=== PATIENT | female | born 1955 | race Caucasian/White ===

== ENCOUNTER 2017-10-04 08:36 | Outpatient (CLI) | payer OTHER | END 2017-10-04 08:37 | disposition home or self-care (01) | LOC: BICMAMMO 08:36 | PROVIDERS: ATTEND Family Medicine | DX: Z12.31 Encounter for screening mammogram for malignant neoplasm of breast (principal); R92.1 Mammographic calcification found on diagnostic imaging of breast; Z80.3 Family history of malignant neoplasm of breast | CPT/HCPCS: 77067 ==

== ENCOUNTER 2020-02-08 18:19 | Inpatient (IN) | payer MEDICARE, OTHER ==
[2020-02-08] MEDS ORDERED: Ondansetron ODT 4 MG TAB PO PRN (19:26)
[2020-02-08] MEDS ORDERED: Guaifenesin DM 100-10/5 ML UDCUP PO PRN (19:26)
[2020-02-08] MEDS ORDERED: Ondansetron PF 4 MG/2 ML Vial IVP PRN (19:26)
[2020-02-08] MEDS ORDERED: Acetaminophen 325 MG TAB PO PRN (19:26)
[2020-02-08] MEDS ORDERED: Acetaminophen 650 MG Suppository PR PRN (19:26)
[2020-02-08] MEDS ORDERED: HYDROcodone/Acetaminophen 5/325 mg Tablet PO PRN ×2 (19:26)
[2020-02-08] MEDS ORDERED: Calcium Carbonate 500 MG ChewTAB PO PRN (19:26)
[2020-02-08] MEDS ORDERED: Sodium Chloride 0.9% 1,000 ML IV SCH (19:30)
--- NOTE | 2020-02-08 19:37 | PDOC.HHP ---
Hospitalist HPI - History of Present Illness n/v diarrhea fever cough History of Present Illness: Case of an 64y/o female with pmhx of htn, hypercholesterolemia and hld who comes transfered from [facility] due to abdominal pain diarrhea nausea and vomiting. patient refers she was on her usual states of health until 3weeks ago when symptoms started. she refers she went to pcp who send a covid test at the moment but was negative, none the less doctor started her on vit c, vit d and zinc. patient refers her symptoms continued to worsen and where complicated with fever chills cough and anorexia. today patient fell very week for which she decided to come to hospital for evaluation. she was found mild hypotension with b/p in the low 100s and saturating in the 90s at for which she was transfered to this institution for further evaluation and management. patient refers grandson was positive for covid on 01/26 Hospitalist ROS - Review of Systems All other systems reviewed; all pertinent +/- noted in HPI/Subj Hospitalist History - Past Surgical History Past Surgical History: reports: Hysterectomy - Social History Smoking Status: Former smoker Alcohol: reports: Occassional Drugs: reports: none Living Situation: With Family - Exam General Appearance: ill appearing Eye: PERRL, anicteric sclera ENT: normocephalic atraumatic, no oropharyngeal lesions Neck: supple, symmetric, no JVD Heart: RRR, no murmur, no gallops Respiratory: no rales, rhonchi, wheezes Gastrointestinal: soft, non-tender, non-distended Extremities: no cyanosis, no clubbing Skin: normal turgor, no lesions, no rashes Neurological: cranial nerve grossly intact, normal sensation to touch Musculoskeletal: normal tone, normal strength, no muscle wasting Psychiatric: normal affect, normal behavior, A&O x 3 Hospitalist Results - Radiology Interpretation Chest x-ray Status: report reviewed by me Additional Comment: b/l infiltrates Hospitalist H&P A/P - Problem (1) Pneumonia due to COVID-19 virus Code(s): U07.1 - COVID-19; J12.89 - OTHER VIRAL PNEUMONIA Status: Acute (2) Hypoxemia Code(s): R09.02 - HYPOXEMIA Status: Acute (3) Elevated troponin Code(s): R77.8 - OTHER SPECIFIED ABNORMALITIES OF PLASMA PROTEINS Status: Acu te (4) Hypertension Code(s): I10 - ESSENTIAL (PRIMARY) HYPERTENSION Status: Acute (5) HLD (hyperlipidemia) Code(s): E78.5 - HYPERLIPIDEMIA, UNSPECIFIED Status: Acute (6) Hypercholesterolemia Code(s): E78.00 - PURE HYPERCHOLESTEROLEMIA, UNSPECIFIED Status: Acute (7) Nausea & vomiting Code(s): R11.2 - NAUSEA WITH VOMITING, UNSPECIFIED Status: Acute - Plan Plan: Case of an 64y/o female with the stated pmhx who present with covid like symptoms covid 19 pneumonia w hypoxemia - cxr consistent with viral pneumia - low lymphocytes consistent with covid 19 - covid test taken, pending results - on dexamethazone 6mg ivd - on rocephin and azithromycin prophylactically - f/u blood cultures - f/u inflammation markers - dvt prophylaxis - id consulted - 02 supplmentation - LA 2 - ivfs elevated troponin - likely nstemi type 2, from demand ischemia - will trend troponins, continue cardiac work up if upwards trend nausea / vomiting - prn symptomatic treatment htn - due to borderline htn will hold medication for now, continue when more stable hld / hypercholesterolemia - continue statin
[2020-02-08] MEDS ORDERED: cefTRIAXone\\ROCEPHIN 1 GM in Sodium Chloride 0.9% 100 ML IVPB SCH (20:00)
[2020-02-08 20:12] LABS: SARS-CoV-2 NAA Rapid Test Not Detected (NotDetected)
[2020-02-08] MEDS ORDERED: Azithromycin 500 MG in Sodium Chloride 0.9% 250 ML 250 ML IVPB SCH (21:00)
[2020-02-08 21:24] LABS: Troponin I 0.095 ng/mL (< 0.028)
[2020-02-08 22:48] VITALS: BMI 31.1
[2020-02-08 23:37] LABS: Troponin I 0.099 ng/mL (< 0.028)
[2020-02-09 05:08] LABS: #Lymphocytes 0.8 thou/uL (1.20-3.40); #Monocytes 0.2 thou/uL (0.11-0.59); #Neutrophils 5.8 thou/uL (1.40-6.50); %Basophils 0.5 % (0.0-1.0); %Eosinophils 0.1 % (0.0-10.0); %Lymphocytes 11.6 % (21.0-51.0); %Neutrophils 84.8 % (42.0-75.0); Hemoglobin 12.8 g/dL (12.0-16.0); Mean Corpuscular HGB CONC 33.9 g/dL (32.0-36.0); Mean Corpuscular Hemoglobin 31.9 pg (27.0-31.0); Mean Corpuscular Volume 94.2 fL (78.0-98.0); Mean Platelet Volume 7.4 fL (7.4-10.4); Platelet Count 306 thou/uL (130-400); RBC Distribution Width 11.7 % (11.5-14.5); Red Blood Cell (RBC) Count 3.99 mill/uL (4.20-5.40); White Blood Cell (WBC) Count 6.9 thou/uL (4.8-10.8)
[2020-02-09 05:48] LABS: ALT (SGPT) 41 U/L (8-55); AST (SGOT) 68 U/L (5-34); Albumin 3.1 g/dL (3.4-4.8); Alkaline Phosphatase 64 U/L (40-110); Anion Gap 14 mmol/L (10-20); BUN (Urea Nitrogen) 17 mg/dL (9.8-20.1); Bilirubin, Total 0.3 mg/dL (0.2-1.2); CRP (Inflammatory) 10.53 mg/dL (= or < 0.5); Calc. Creatinine Clearance 89 mL/min (70-130); Calcium 8.3 mg/dL (7.8-10.44); Carbon Dioxide 15 mmol/L (23-31); Chloride 112 mmol/L (98-107); Estimated GFR-MDRD 74; Globulin 3.2 g/dL (2.4-3.5); Glucose 147 mg/dL (80-115); Protein, Total 6.3 g/dL (6.0-8.3); Sodium 137 mmol/L (136-145)
[2020-02-09] MEDS: Famotidine 20 MG TAB PO SCH ×2 (08:20→21:20)
[2020-02-09] MEDS: Dexamethasone 4 mg/ml Vial SLOW IVP SCH (08:20)
[2020-02-09 08:43] LABS: Lactic Acid 1.5 mmol/L (0.5-2.2)
[2020-02-09 08:48] LABS: Anion Gap 16 mmol/L (10-20); BUN (Urea Nitrogen) 17 mg/dL (9.8-20.1); Calc. Creatinine Clearance 86 mL/min (70-130); Calcium 8.3 mg/dL (7.8-10.44); Carbon Dioxide 15 mmol/L (23-31); Chloride 112 mmol/L (98-107); Estimated GFR-MDRD 71; Glucose 137 mg/dL (80-115); Magnesium 1.7 mg/dL (1.6-2.6); Phosphorus 2.3 mg/dL (2.3-4.7); Potassium 3.7 mmol/L (3.5-5.1); Sodium 139 mmol/L (136-145)
[2020-02-09] MEDS ORDERED: Enoxaparin Sodium 40 MG/0.4 ML SYRINGE SC SCH ×2 (09:00)
[2020-02-09] MEDS ORDERED: Magnesium Sulfate 2 GM in Sodium Chloride 0.9% 100 ML IVPB SCH (09:30)
[2020-02-09] MEDS ORDERED: Magnesium 2 GM/50 ML 2 GM in Premix Bag 1 BAG IVPB SCH (09:30)
[2020-02-09] MEDS ORDERED: Cepastat Lozenges 1 LOZ PO PRN (16:53)
[2020-02-09] MEDS ORDERED: cloNIDine 0.1 MG TAB PO PRN (16:55)
[2020-02-09] MEDS ORDERED: Sodium Chloride 0.65% Nasal 44 ML BOT EA NARE PRN (17:59)
--- NOTE | 2020-02-09 18:00 | PDOC.HOSPP ---
- Subjective Encounter Date: 02/09/20 Encounter Time: 17:30 Subjective: Patient seen and examined for respiratory failure due to pneumoniasuspected COVID-19. Feels the same. Denies new chest pain or palpitations. No nausea or vomiting. - Objective Vital Signs & Weight: Vital Signs (12 hours) Temp Pulse Resp BP Pulse Ox 02/09/20 11:10 99.1 F 82 21 H 129/70 98 02/09/20 08:29 98.8 F 79 24 H 124/72 95 Weight Weight 176 lb 2 oz I&O: 02/08/20 02/09/20 02/10/20 06:59 06:59 06:59 Intake Total 540 Balance 540 Result Diagrams: 02/09/20 04:42 02/09/20 08:19 Additional Labs: Abnormal Lab Results - Last 48 hrs 02/08/20 20:46: Troponin I 0.095 H 02/08/20 23:05: Troponin I 0.099 H 02/09/20 04:42: Chloride 112 H, Carbon Dioxide 15 L, AST 68 H, C-Reactive Protein 10.53 H, Albumin 3.1 L, Albumin/Globulin Ratio 1.0 L 02/09/20 04:42: Lactate Dehydrogenase 501 H 02/09/20 04:42: RBC 3.99 L, MCH 31.9 H, Neutrophils % 84.8 H, Lymphocytes % 11.6 L, Lymphocytes # 0.8 L 02/09/20 04:42: D-Dimer 0.93 H 02/09/20 08:19: Chloride 112 H, Carbon Dioxide 15 L 02/09/20 08:19: B-Hydroxybutyrate 0.47 H 02/09/20 08:19: Ferritin 1950.04 H Radiology Reviewed by me: Yes (Chest x-raypneumonia) EKG Reviewed by me: Yes (Sinus rhythm on telemetry) Hospitalist ROS - Review of Systems Gastrointestinal: denies: nausea, vomiting, abdominal pain, diarrhea, constipation, melena, hematochezia, other Genitourinary: denies: dysuria, frequency, incontinence, hematuria, retention, other - Medication Medications: Active Medications Generic Name Dose Route Start Last Admin Trade Name Freq PRN Reason Stop Dose Admin Dexamethasone 6 mg 02/09/20 09:00 02/09/20 08:20 Dexamethasone 4 Mg/Ml Vial SLOW IVP 6 mg DAILY BAYRON Administration Enoxaparin Sodium 40 mg 02/09/20 09:00 02/09/20 08:20 Enoxaparin Sodium 40 Mg/0.4 Ml Syringe SC 40 mg 09,2099 BAYRON Administration Famotidine 20 mg 02/09/20 09:00 02/09/20 08:20 Famotidine 20 Mg Tab PO 20 mg BID BAYRON Administration Guaifenesin/Dextromethorphan 15 ml 02/08/20 19:26 02/09/20 16:28 Guaifenesin Dm 100-10/5 Ml Udcup PO 15 ml Q4H PRN Administration Cough - Exam General Appearance: ill appearing Neck: supple, no JVD Heart: RRR, no gallops, no rubs, normal peripheral pulses Respiratory: normal chest expansion, rales, rhonchi, wheezes Gastrointestinal: soft, non-tender, non-distended, normal bowel sounds Extremities: no cyanosis, no clubbing Neurological: no new deficit Musculoskeletal: generalized weakness Psychiatric: normal affect, A&O x 3 Hosp A/P - Plan DVT proph w/lovenox, DVT proph w/SCDs Acute hypoxic respiratory failurePOA Suspected COVID-19 pneumonia Hypertension Hyperlipidemia Elevated inflammatory markers CKD stage II Metabolic acidosis Hypomagnesemia Plan: Recheck COVID-19 antigen. Check COVID-19 antibodies per ID. Monitor inflammatory markers. Continue dexamethasone. Add Pepcid for GI prophylaxis. Add albuterol MDI. Replace magnesium. Continue empiric antibiotics. Discontinue IV fluids. Recheck labs in a.m. Continue O2 supplementation. Plan discussed with the patient. DVT prophylaxis with Lovenox
[2020-02-09] MEDS ORDERED: Albuterol Sulfate 2.5 mg/3 ml Neb NEB SCH (18:30)
[2020-02-09] MEDS ORDERED: Albuterol 200 PUFF (6.7GM INHALER) ONE (19:44)
--- NOTE | 2020-02-09 20:50 | CON ---
DATE OF CONSULTATION: 02/09/2020 REASON FOR CONSULTATION: Pneumonia, possible COVID infection. HISTORY OF PRESENT ILLNESS: A 64-year-old with history of hypertension, who has had respiratory symptoms, which started on January 26. So about 17 days, she was tested in the outpatient setting was negative for SARS-CoV-2. She persisted with symptoms including shortness of breath, cough, and diarrhea, so she was brought in, retested negative again. The chest x-ray showed interstitial infiltrates. Currently, she does not have oxygen supplementation requirement and saturating at 98%, although she was 93 just a while ago. Denies any headaches, still coughing intermittently. No chest pain. No abdominal pain. Some diarrhea. No genitourinary symptoms. No neurological symptoms. No joint pains or skin disorder. PAST MEDICAL HISTORY: Hypertension and hyperlipidemia. PAST SURGICAL HISTORY: Hysterectomy. SOCIAL HISTORY: Drinks occasionally. Former smoker, quit less than 10 years ago. Lives in [place]. ALLERGIES: NONE. CURRENT MEDICATIONS: She is on; 1. Azithromycin. 2. Ceftriaxone. 3. Decadron. 4. Hydrocodone. 5. Ondansetron. FAMILY HISTORY: Noncontributory. PHYSICAL EXAMINATION: VITAL SIGNS: T-max 99.1, she is breathing at 21 to 24 times a minute, and saturating 98 on room air. SKIN: Examination is normal. There is no lymphadenopathy. HEENT: Ocular movements conjugate. Oral cavity normal. NECK: Supple. LUNGS: With a few scattered inspiratory crackles. No wheezing. HEART: S1 and S2. Regular rate. No S3 or S4. ABDOMEN: Soft, not distended or tender. No ascites. No bladder distention. EXTREMITIES: No joint inflammatory activity. Moves extremities equally. NEUROLOGIC: Cognitive function appears to be intact. LABORATORY DATA: White cell count 6.9, hemoglobin 12.8, and platelets 306 with 84% neutrophils. D-dimer 0.93. Creatinine 0.78. CRP 10.53. Ferritin 1950. COVID was done once here, it was not detected in the hospital. The chest x-ray with patchy focal areas of infiltrates on both sides. ASSESSMENT AND PLAN: Hypertension, hyperlipidemia, and two and half weeks of respiratory symptoms, some hypoxemia, but not requiring O2 supplementation, and 2 negative COVID tests. Her pretest likelihood for COVID is at least 70%, so she is going to need another COVID test plus an antibody test to rule this out and allow discharge planning. We will go ahead and get it started. She should be able to go home. I do think, she is not eligible for antiviral even if she tests positive. She will wait for the results and then follow accordingly to complete her Decadron course in the outpatient setting if she tests positive. Job ID: [id number]
[2020-02-09] MEDS ORDERED: cefTRIAXone\\ROCEPHIN 1 GM in Sodium Chloride 0.9% 100 ML IVPB SCH (21:00)
[2020-02-09] MEDS: Albuterol 200 PUFF (6.7GM INHALER) INH SCH (21:18)
[2020-02-09] MEDS: Zinc Sulfate 220 MG CAP PO SCH (21:20)
[2020-02-09] MEDS: guaiFENesin ER 600 MG TAB PO SCH (21:20)
[2020-02-09] MEDS: Azithromycin 500 MG in Sodium Chloride 0.9% 250 ML 250 ML IVPB SCH (22:21)
[2020-02-10] MEDS: Albuterol 200 PUFF (6.7GM INHALER) INH SCH ×7 (00:08→23:09)
[2020-02-10] MEDS ORDERED: Ibuprofen 600 MG TAB PO SCH (01:45)
--- NOTE | 2020-02-10 03:55 | PDOC.EVN ---
Event Note - Event Note Event Note: Nursing called HR 150s-160s, narrow complex, irregular. Patient asymptomatic, other VSS. Ordered stat EKG. EKG afib rvr. Give cardizem bolus, start drip, LMWH 1mg/kg, CHADsVASC score 2. check lytes. Get echo and consult cardiology.
[2020-02-10 04:23] LABS: #Basophils 0.1 thou/uL (0.0-0.2); #Lymphocytes 0.9 thou/uL (1.20-3.40); #Monocytes 0.6 thou/uL (0.11-0.59); %Basophils 0.5 % (0.0-1.0); %Eosinophils 0.1 % (0.0-10.0); %Lymphocytes 7.7 % (21.0-51.0); %Monocytes 5.1 % (0.0-10.0); %Neutrophils 86.6 % (42.0-75.0); Mean Corpuscular Hemoglobin 32.6 pg (27.0-31.0); Mean Platelet Volume 7.2 fL (7.4-10.4); Platelet Count 341 thou/uL (130-400); RBC Distribution Width 11.5 % (11.5-14.5); Red Blood Cell (RBC) Count 3.67 mill/uL (4.20-5.40); White Blood Cell (WBC) Count 11.6 thou/uL (4.8-10.8)
[2020-02-10] MEDS: Diltiazem 125 MG in Sodium Chloride 0.9% 100 ML IVPB SCH ×2 (04:26→16:04)
[2020-02-10] MEDS ORDERED: Enoxaparin Sodium 80 MG/0.8 ML SYRINGE SC SCH (04:30)
[2020-02-10 04:49] LABS: ALT (SGPT) 41 U/L (8-55); AST (SGOT) 57 U/L (5-34); Albumin 3.2 g/dL (3.4-4.8); Alkaline Phosphatase 66 U/L (40-110); Anion Gap 17 mmol/L (10-20); BUN (Urea Nitrogen) 18 mg/dL (9.8-20.1); Bilirubin, Total 0.4 mg/dL (0.2-1.2); CRP (Inflammatory) 3.62 mg/dL (= or < 0.5); Calc. Creatinine Clearance 82 mL/min (70-130); Calcium 8.2 mg/dL (7.8-10.44); Carbon Dioxide 14 mmol/L (23-31); Chloride 108 mmol/L (98-107); Estimated GFR-MDRD 67; Globulin 3.2 g/dL (2.4-3.5); Glucose 126 mg/dL (80-115); Phosphorus 1.8 mg/dL (2.3-4.7); Potassium 3.7 mmol/L (3.5-5.1); Protein, Total 6.4 g/dL (6.0-8.3); Sodium 135 mmol/L (136-145)
[2020-02-10] MEDS ORDERED: Electrolyte Replacement Protoc 1 EACH EACH FS PRN (05:00)
[2020-02-10] MEDS ORDERED: Magnesium 2 GM/50 ML 2 GM in Premix Bag 1 BAG IVPB SCH (05:15)
[2020-02-10] MEDS: PHOS-NAK 1 PKT PACK PO SCH ×2 (05:19→07:45)
[2020-02-10] MEDS: Multivit, Therapeutic 1 TAB PO SCH (07:46)
[2020-02-10] MEDS: Saccharomyces boulardii 250 MG CAP PO SCH (07:46)
[2020-02-10] MEDS: guaiFENesin ER 600 MG TAB PO SCH ×2 (07:46→19:54)
[2020-02-10] MEDS: Ascorbic Acid 500 mg Chewable Tablet PO SCH (07:46)
[2020-02-10] MEDS: Famotidine 20 MG TAB PO SCH ×2 (07:46→19:54)
[2020-02-10] MEDS: Dexamethasone 4 mg/ml Vial SLOW IVP SCH (07:46)
[2020-02-10] MEDS ORDERED: Potassium Phosphate 30 MMOL in Sodium Chloride 0.9% 250 ML 250 ML IVPB SCH (09:00)
[2020-02-10 10:35] LABS: SARS-CoV-2 MS2 Positive; SARS-CoV-2 N Gene Negative; SARS-CoV-2 S Gene Negative; SARS-CoV-2 by NAA Not Detected (NotDetected); SARS-CoV-2 orf1ab Negative
[2020-02-10] MEDS: Cefepime 1 GM in Sodium Chloride 0.9% 100 ML IVPB SCH ×2 (11:28→23:09)
[2020-02-10] MEDS ORDERED: Aspirin 81 mg Enteric Coated Tablet PO SCH (12:00)
[2020-02-10 12:34] LABS: CKMB 2.7 ng/mL (0-6.6)
[2020-02-10 15:21] LABS: SARS-CoV-2 IgG Ab Reactive (NonReactive); SARS-CoV-2 IgG Index 3.15 S/CO (< 1.40)
--- NOTE | 2020-02-10 16:51 | PRG ---
DATE OF SERVICE: 02/10/2020 SUBJECTIVE: She is still desaturating quite a bit and is going to start getting O2 supplementation. She developed atrial fibrillation and Dr. Farrell is still working on her case. No chest pain. No abdominal pain or diarrhea. No genitourinary symptoms. OBJECTIVE: VITAL SIGNS: T-max 102.6, she is now 98.2; blood pressure 117/63; heart rate 85; respiratory rate 20; O2 saturations 92% to 93% on room air. She was 90 when I saw her in the room. She is tachypneic about 20 to 24, little bit apprehensive. HEENT: Ocular movements conjugate. LUNGS: Symmetric air entry. Few crackles at the bases. No wheezing. HEART: S1 and S2, regular rate. ABDOMEN: Soft, mildly distended. Not tender. EXTREMITIES: Moves extremities equally. LABORATORY DATA: White cell count 11.6, hemoglobin 12, platelets 341. D-dimer 0.73. Creatinine 0.85. Ferritin is up to 2100. CRP is down to 3.62. SARS-CoV IgG antibody index was 3.15, clearly positive. The second SARS-CoV-2 PCR was negative. ASSESSMENT AND DISCUSSION: Hypertension, hyperlipidemia, two and half weeks of respiratory symptoms, hypoxemia, and negative COVID test PCR x3, but she has a positive antibody, so that means that she is a positive COVID patient. One of those cases, where there is not a lot of upper airway replication and RNA sequences, but there is lower respiratory tract. We see those cases from [id number] and she has quite a bit of illness there and we will need to continue on Decadron here in the hospital. She is not eligible for antiviral treatment. Hopefully, she will start to improve soon. Job ID: [id number]
[2020-02-10] MEDS ORDERED: Diltiazem 125 MG in Sodium Chloride 0.9% 100 ML IVPB SCH (18:10)
[2020-02-10] MEDS ORDERED: Potassium Chloride 20 MEQ TAB PO SCH (18:15)
[2020-02-10] MEDS ORDERED: Dronedarone HCl 400 MG TAB PO SCH (18:15)
--- NOTE | 2020-02-10 19:04 | PDOC.HOSPP ---
- Subjective Encounter Date: 02/10/20 Encounter Time: 16:00 Subjective: Patient evaluated for COVID-19 pneumonia. Symptomatically improving. Denies worsening of shortness of breath. Continues to have cough with some production. No chest pain/palpitations. Developed atrial fibrillation with rapid ventricular response overnight. Currently on Cardizem drip with anticoagulation. - Objective Vital Signs & Weight: Vital Signs (12 hours) Temp Pulse Resp BP Pulse Ox 02/10/20 16:12 98.6 F 84 20 121/68 92 L 02/10/20 11:38 98.2 F 85 20 117/63 92 L 02/10/20 07:50 97.9 F 128 H 20 117/72 92 L Weight Weight 176 lb 2 oz I&O: 02/09/20 02/10/20 02/11/20 06:59 06:59 06:59 Intake Total 540 2675 Balance 540 2675 Result Diagrams: 02/11/20 04:52 02/11/20 04:52 Additional Labs: Abnormal Lab Results - Last 48 hrs 02/09/20 08:19: Chloride 112 H, Carbon Dioxide 15 L 02/09/20 08:19: B-Hydroxybutyrate 0.47 H 02/09/20 08:19: Ferritin 1950.04 H 02/10/20 04:14: Sodium 135 L, Chloride 108 H, Carbon Dioxide 14 L, Phosphorus 1.8 L, AST 57 H, C-Reactive Protein 3.62 H, Albumin 3.2 L, Albumin/Globulin Ratio 1.0 L 02/10/20 04:14: Ferritin 2193.14 H 02/10/20 04:14: WBC 11.6 H, RBC 3.67 L, Hct 34.2 L, MCH 32.6 H, MPV 7.2 L, Neutrophils % 86.6 H, Lymphocytes % 7.7 L, Neutrophils # 10.0 H, Lymphocytes # 0.9 L, Monocytes # 0.6 H 02/10/20 04:14: D-Dimer 0.73 H 02/10/20 11:41: Troponin I 0.032 H EKG Reviewed by me: Yes (Atrial fibrillation on telemetry) Hospitalist ROS - Review of Systems Cardiovascular: denies: chest pain, palpitations, orthopnea, paroxysmal noc. dyspnea, edema, light headedness, other Gastrointestinal: denies: nausea, vomiting, abdominal pain, diarrhea, constipation, melena, hematochezia, other - Medication Medications: Active Medications Generic Name Dose Route Start Last Admin Trade Name Freq PRN Reason Stop Dose Admin Albuterol Sulfate 2 puff 02/09/20 20:00 02/10/20 11:57 Albuterol 200 Puff (6.7gm Inhaler) INH 2 puff Q4H BAYRON Administration Ascorbic Acid 1,000 mg 02/10/20 09:00 02/10/20 07:46 Ascorbic Acid 500 Mg Chewable Tablet PO 1,000 mg DAILY BAYRON Administration Dexamethasone 6 mg 02/09/20 09:00 02/10/20 07:46 Dexamethasone 4 Mg/Ml Vial SLOW IVP 6 mg DAILY BAYRON Administration Dronedarone 400 mg 02/10/20 18:15 02/10/20 18:42 Dronedarone Hcl 400 Mg Tab PO 02/10/20 20:15 400 mg NOW BAYRON Administration Famotidine 20 mg 02/09/20 09:00 02/10/20 07:46 Famotidine 20 Mg Tab PO 20 mg BID BAYRON Administration Guaifenesin 600 mg 02/09/20 21:00 02/10/20 07:46 Guaifenesin Er 600 Mg Tab PO 600 mg Q12HR BAYRON Administration Guaifenesin/Dextromethorphan 15 ml 02/08/20 19:26 02/09/20 16:28 Guaifenesin Dm 100-10/5 Ml Udcup PO 15 ml Q4H PRN Administration Cough Azithromycin 500 mg/ Sodium 250 mls @ 250 mls/hr 02/09/20 21:00 02/09/20 22:21 Chloride IVPB 250 mls 2100 BAYRON Administration Cefepime HCl 1 gm/ Sodium 100 mls @ 200 mls/hr 02/10/20 11:00 02/10/20 11:28 Chloride IVPB 100 mls 1100,2300 BAYRON Administration Multivitamins 1 tab 02/10/20 09:00 02/10/20 07:46 Multivit, Therapeutic 1 Tab PO 1 tab DAILY BAYRON Administration Potassium Chloride 40 meq 02/10/20 18:15 02/10/20 18:42 Potassium Chloride 20 Meq Tab PO 02/10/20 20:15 40 meq NOW BAYRON Administration Saccharomyces Boulardii 250 mg 02/10/20 09:00 10/28/20 07:46 Saccharomyces Boulardii 250 Mg Cap PO 250 mg DAILY BAYRON Administration Zinc Sulfate 220 mg 02/09/20 21:00 02/09/20 21:20 Zinc Sulfate 220 Mg Cap PO 220 mg HS BAYRON Administration - Exam General Appearance: ill appearing Neck: supple, no JVD Heart: RRR, no gallops, no rubs Respiratory: rhonchi Gastrointestinal: soft, no guarding, no rigidity Neurological: no new deficit Psychiatric: normal affect, A&O x 3 Hosp A/P - Plan DVT proph w/lovenox, DVT proph w/SCDs Acute hypoxic respiratory failure Sepsis due to COVID-19 pneumoniaPOA New onset atrial fibrillation with rapid ventricular response (started on 02/09) Hypertension Hyperlipidemia Elevated inflammatory markers CKD stage II Metabolic acidosis Hypomagnesemia Plan: Continue telemetry monitoring. Covid antibodies positive at 3.15. Repeat Covid PCR negative. Case discussed with infectious disease. Patient most likely has COVID-19 pneumonia probably in her late second or early third week. Will continue O2 supplementation with inhalers and dexamethasone. Await cardiology input. Continue Cardizem drip for now. Continue anticoagulation for atrial fibrillation. Replace potassium and phosphorus. Echocardiogram and further cardiac work-up as outpatient due to active Covid infection. Monitor inflammatory markers every 2 to 3 days. Patient will require probably 2 to 3 days for stabilization
[2020-02-10] MEDS: Azithromycin 500 MG in Sodium Chloride 0.9% 250 ML 250 ML IVPB SCH (19:53)
[2020-02-10] MEDS: Enoxaparin Sodium 80 MG/0.8 ML SYRINGE SC SCH (19:54)
[2020-02-10] MEDS: Zinc Sulfate 220 MG CAP PO SCH (19:54)
[2020-02-11] MEDS: Albuterol 200 PUFF (6.7GM INHALER) INH SCH ×6 (04:14→23:57)
[2020-02-11 05:23] LABS: #Lymphocytes 1.1 thou/uL (1.20-3.40); #Monocytes 0.7 thou/uL (0.11-0.59); #Neutrophils 9.6 thou/uL (1.40-6.50); %Basophils 0.1 % (0.0-1.0); %Eosinophils 0.1 % (0.0-10.0); %Lymphocytes 9.7 % (21.0-51.0); %Monocytes 6.5 % (0.0-10.0); %Neutrophils 83.6 % (42.0-75.0); Hemoglobin 11.6 g/dL (12.0-16.0); Mean Corpuscular HGB CONC 33.1 g/dL (32.0-36.0); Mean Corpuscular Hemoglobin 31.5 pg (27.0-31.0); Mean Corpuscular Volume 95.2 fL (78.0-98.0); Mean Platelet Volume 7.2 fL (7.4-10.4); Platelet Count 353 thou/uL (130-400); RBC Distribution Width 11.7 % (11.5-14.5); Red Blood Cell (RBC) Count 3.67 mill/uL (4.20-5.40); White Blood Cell (WBC) Count 11.5 thou/uL (4.8-10.8)
[2020-02-11 06:43] LABS: ALT (SGPT) 36 U/L (8-55); AST (SGOT) 46 U/L (5-34); Albumin 3.1 g/dL (3.4-4.8); Alkaline Phosphatase 62 U/L (40-110); Anion Gap 14 mmol/L (10-20); BUN (Urea Nitrogen) 18 mg/dL (9.8-20.1); Bilirubin, Total 0.4 mg/dL (0.2-1.2); Calc. Creatinine Clearance 94 mL/min (70-130); Calcium 8.1 mg/dL (7.8-10.44); Carbon Dioxide 15 mmol/L (23-31); Chloride 116 mmol/L (98-107); Estimated GFR-MDRD 79; Globulin 3.2 g/dL (2.4-3.5); Glucose 112 mg/dL (80-115); Magnesium 2.2 mg/dL (1.6-2.6); Phosphorus 2.9 mg/dL (2.3-4.7); Potassium 4.1 mmol/L (3.5-5.1); Protein, Total 6.3 g/dL (6.0-8.3); Sodium 141 mmol/L (136-145)
[2020-02-11] MEDS: Famotidine 20 MG TAB PO SCH ×2 (09:08→20:02)
[2020-02-11] MEDS: Saccharomyces boulardii 250 MG CAP PO SCH (09:08)
[2020-02-11] MEDS: Ascorbic Acid 500 mg Chewable Tablet PO SCH (09:09)
[2020-02-11] MEDS: Enoxaparin Sodium 80 MG/0.8 ML SYRINGE SC SCH ×2 (09:09→20:02)
[2020-02-11] MEDS: Doxycycline 100 MG CAP PO SCH ×2 (09:09→20:02)
[2020-02-11] MEDS: Dexamethasone 4 mg/ml Vial SLOW IVP SCH (09:09)
[2020-02-11] MEDS: Aspirin 81 mg Enteric Coated Tablet PO SCH (09:09)
[2020-02-11] MEDS: Dronedarone HCl 400 MG TAB PO SCH ×2 (09:09→17:48)
[2020-02-11] MEDS: guaiFENesin ER 600 MG TAB PO SCH ×2 (09:09→20:02)
[2020-02-11] MEDS: Multivit, Therapeutic 1 TAB PO SCH (09:09)
--- NOTE | 2020-02-11 10:42 | CON ---
DATE OF CONSULTATION: 02/11/2020 REASON FOR CONSULTATION: Atrial fibrillation with a rapid ventricular response in the setting of COVID pneumonia. HISTORY OF PRESENT ILLNESS: Ms. Ruiz is a 64-year-old woman. She is admitted to the hospital with difficulty breathing and had interstitial infiltrates on the chest x-ray. She has had negative COVID test, but is positive for COVID by antibodies and is thought that the COVID infection in her lungs is the primary location, but there is not a significant amount of COVID in the upper airways to give her a positive nasal swab. She is requiring oxygen. During this hospitalization, she has developed atrial fibrillation with a rapid rate. Intravenous Cardizem helped to decrease the rate and now she has converted to sinus rhythm with Multaq, which was started yesterday. I spoke with the patient on the phone. She said she is feeling better. She does not really feeling different when she went back into sinus rhythm. She is still somewhat short of breath. CURRENT MEDICATIONS: 1. She is on intravenous Cardizem, but we are changing that to oral Cardizem. 2. She is on Multaq. PAST MEDICAL HISTORY: No previous cardiac history. PHYSICAL EXAMINATION: Not done in view of COVID infection. Attempts were made to limit contacts. The information is obtained from the chart. Her most recent blood pressure has been variable 117/72 and 150/86, pulse is 80 and it is sinus on the monitor now. PERTINENT LABORATORY DATA: Her white blood cell count was 11.5. Her potassium yesterday was 3.7 and 4.1 today. Blood glucose 112. Troponin levels indeterminate at 0.032, probably demand ischemia. Ferritin level is very high. EKG, the patient did have atrial fibrillation with a rapid rate, now she is in sinus rhythm. ASSESSMENT: 1. COVID pneumonia. 2. Atrial fibrillation with a rapid rate, now in sinus rhythm. PLAN: 1. Continue Multaq. 2. Continue anticoagulation. She is on enoxaparin now, could be changed to Eliquis at the time of discharge. We can get her some samples of that. 3. Change to oral Cardizem. 4. From cardiac standpoint, it may be reasonable to go home tomorrow depending on her overall status. Job ID: [id number]
[2020-02-11] MEDS: Cefepime 1 GM in Sodium Chloride 0.9% 100 ML IVPB SCH (11:43)
[2020-02-11] MEDS: Zinc Sulfate 220 MG CAP PO SCH (20:02)
[2020-02-11] MEDS ORDERED: Cefepime 1 GM in Sodium Chloride 0.9% 100 ML IVPB SCH (21:00)
--- NOTE | 2020-02-11 22:08 | PDOC.HOSPP ---
- Subjective Encounter Date: 02/11/20 Encounter Time: 17:00 Subjective: Patient seen and examined for respiratory failure/sepsis due to [place] at 19 pneumonia with atrial fibrillation. Shortness of breath almost the same. Overall feels better. Requiring 4-5 L of oxygen. - Objective Vital Signs & Weight: Vital Signs (12 hours) Temp Pulse Resp BP Pulse Ox 02/11/20 21:00 98.5 F 82 24 H 144/80 H 94 L 02/11/20 15:50 98.6 F 82 24 H 142/79 H 97 02/11/20 11:48 98.3 F 86 24 H 133/75 92 L Weight Weight 176 lb 2 oz I&O: 02/10/20 02/11/20 02/12/20 06:59 06:59 06:59 Intake Total 2675 1999 136 Balance 2675 1999 1368 Result Diagrams: 02/11/20 04:52 02/11/20 04:52 EKG Reviewed by me: Yes (Sinus rhythm on telemetry) Hospitalist ROS - Review of Systems Cardiovascular: denies: chest pain, palpitations, orthopnea, paroxysmal noc. dyspnea, edema, light headedness, other Gastrointestinal: denies: nausea, vomiting, abdominal pain, diarrhea, constipation, melena, hematochezia, other - Medication Medications: Active Medications Generic Name Dose Route Start Last Admin Trade Name Meirq PRN Reason Stop Dose Admin Albuterol Sulfate 2 puff 02/09/20 20:00 02/11/20 20:05 Albuterol 200 Puff (6.7gm Inhaler) INH 2 puff Q4H BAYRON Administration Ascorbic Acid 1,000 mg 02/10/20 09:00 02/11/20 09:09 Ascorbic Acid 500 Mg Chewable Tablet PO 1,000 mg DAILY BAYRON Administration Aspirin 81 mg 02/11/20 09:00 02/11/20 09:09 Aspirin 81 Mg Enteric Coated Tablet PO 81 mg DAILY BAYRON Administration Dexamethasone 6 mg 02/09/20 09:00 02/11/20 09:09 Dexamethasone 4 Mg/Ml Vial SLOW IVP 6 mg DAILY BAYRON Administration Doxycycline Hyclate 100 mg 02/11/20 09:00 02/11/20 20:02 Doxycycline 100 Mg Cap PO 100 mg BID BAYRON Administration Dronedarone 400 mg 02/11/20 08:00 02/11/20 17:48 Dronedarone Hcl 400 Mg Tab PO 400 mg BID-WM BAYRON Administration Enoxaparin Sodium 80 mg 02/10/20 21:00 02/11/20 20:02 Enoxaparin Sodium 80 Mg/0.8 Ml Syringe SC 80 mg 09,2099 BAYRON Administration Famotidine 20 mg 02/09/20 09:00 02/11/20 20:02 Famotidine 20 Mg Tab PO 20 mg BID BAYRON Administration Guaifenesin 600 mg 02/09/20 21:00 02/11/20 20:02 Guaifenesin Er 600 Mg Tab PO 600 mg Q12HR BAYRON Administration Guaifenesin/Dextromethorphan 15 ml 02/08/20 19:26 02/09/20 16:28 Guaifenesin Dm 100-10/5 Ml Udcup PO 15 ml Q4H PRN Administration Cough Cefepime HCl 1 gm/ Sodium 100 mls @ 200 mls/hr 02/11/20 21:00 02/11/20 20:03 Chloride IVPB 100 mls 899,2099 BAYRON Administration Multivitamins 1 tab 02/10/20 09:00 02/11/20 09:09 Multivit, Therapeutic 1 Tab PO 1 tab DAILY BAYRON Administration Saccharomyces Boulardii 250 mg 02/10/20 09:00 02/11/20 09:08 Saccharomyces Boulardii 250 Mg Cap PO 250 mg DAILY BAYRON Administration Zinc Sulfate 220 mg 02/09/20 21:00 02/11/20 20:02 Zinc Sulfate 220 Mg Cap PO 220 mg HS BAYRON Administration - Exam General Appearance: ill appearing Neck: supple, no JVD Heart: RRR, no gallops Respiratory: no wheezes, rales, rhonchi Gastrointestinal: soft, non-tender, no guarding, no rigidity Neurological: no new deficit Hosp A/P - Plan DVT proph w/lovenox Acute hypoxic respiratory failure Sepsis due to COVID-19 pneumoniaPOA New onset atrial fibrillation with rapid ventricular response (started on 02/09)Currently in sinus rhythmS/p Cardizem drip Hypertension Hyperlipidemia Elevated inflammatory markers CKD stage II Metabolic acidosis Hypomagnesemia Plan: Continue O2 supplementation with dexamethasone and bronchodilators. Case discussed with infectious disease who recommended discontinuation of antibiotics . Continue Mucinex. Continue dronedarone with Cardizem and anticoagulation per cardiology. Recheck labs in a.m. including inflammatory markers wean O2 as tolerated. Check inflammatory markers in a.m.
[2020-02-12 00:33] LABS: Actual Bicarbonate (HCO3a) 16.5 mEq/L (22-28); Base Excess (BEa) -5.4 mEq/L (-2.0 to +3.0); Calcium, Ionized (arterial) 1.14 mmol/L (1.12-1.30); Carboxyhemoglobin (COHb) 0.3 gm% (0.0-3.0); Hemoglobin (Hb) 12.7 g/dL (12.0-16.0); Potassium - ABG Lab 4.09 mmol/L (3.70-5.30); pH, Arterial 7.47 (7.35-7.45)
[2020-02-12 00:36] LABS: CO2 Tension 23.2 mmHg (35.0-45.0); O2 Tension (PaO2), arterial 50.8 mmHg (> 80.0)
[2020-02-12 00:37] LABS: Puncture Site LRA
[2020-02-12] MEDS: Albuterol 200 PUFF (6.7GM INHALER) INH SCH ×5 (04:06→20:00)
[2020-02-12 05:15] LABS: Band 13 % (5-11); Hemoglobin 12.5 g/dL (12.0-16.0); Lymphocytes 9 % (21-51); MDiff Complete? YES; Mean Corpuscular HGB CONC 34.4 g/dL (32.0-36.0); Mean Corpuscular Hemoglobin 32.2 pg (27.0-31.0); Mean Corpuscular Volume 93.6 fL (78.0-98.0); Mean Platelet Volume 7.1 fL (7.4-10.4); Monocytes 7 % (0-10); Neutrophil 71 % (42-75); Platelet Count 386 thou/uL (130-400); Platelet Morphology Comment Appears Adequate; RBC Distribution Width 11.6 % (11.5-14.5); RBC Morphology Normal; Red Blood Cell (RBC) Count 3.88 mill/uL (4.20-5.40); White Blood Cell (WBC) Count 12.5 thou/uL (4.8-10.8)
[2020-02-12 05:20] LABS: ALT (SGPT) 39 U/L (8-55); AST (SGOT) 47 U/L (5-34); Albumin 3.2 g/dL (3.4-4.8); Alkaline Phosphatase 69 U/L (40-110); Anion Gap 15 mmol/L (10-20); BUN (Urea Nitrogen) 17 mg/dL (9.8-20.1); Bilirubin, Total 0.7 mg/dL (0.2-1.2); Calc. Creatinine Clearance 98 mL/min (70-130); Calcium 8.3 mg/dL (7.8-10.44); Carbon Dioxide 16 mmol/L (23-31); Chloride 110 mmol/L (98-107); Estimated GFR-MDRD 82; Globulin 3.3 g/dL (2.4-3.5); Glucose 112 mg/dL (80-115); Phosphorus 2.3 mg/dL (2.3-4.7); Protein, Total 6.5 g/dL (6.0-8.3); Sodium 137 mmol/L (136-145)
[2020-02-12] MEDS ORDERED: Magnesium 2 GM/50 ML 2 GM in Premix Bag 1 BAG IVPB SCH (06:15)
--- NOTE | 2020-02-12 07:27 | RAD ---
Exam: Chest one view HISTORY:Shortness of breath. Hypoxia. Comparison: 02/08/2020 FINDINGS: Cardiac silhouette: Normal Aorta: Unremarkable Pulmonary vessels: Normal Costophrenic angles: Clear LUNGS: Worsening multifocal interstitial and alveolar opacities. Pneumothorax: None Osseous abnormalities: None IMPRESSION: Worsening multifocal pneumonia.
[2020-02-12] MEDS: guaiFENesin ER 600 MG TAB PO SCH ×2 (08:06→20:01)
[2020-02-12] MEDS: Dronedarone HCl 400 MG TAB PO SCH ×2 (08:07→17:50)
[2020-02-12] MEDS: Ascorbic Acid 500 mg Chewable Tablet PO SCH (08:07)
[2020-02-12] MEDS: Dexamethasone 4 mg/ml Vial SLOW IVP SCH (08:08)
[2020-02-12] MEDS: Aspirin 81 mg Enteric Coated Tablet PO SCH (08:08)
[2020-02-12] MEDS: Enoxaparin Sodium 80 MG/0.8 ML SYRINGE SC SCH ×2 (08:09→20:02)
[2020-02-12] MEDS: Multivit, Therapeutic 1 TAB PO SCH (08:10)
[2020-02-12] MEDS: Famotidine 20 MG TAB PO SCH ×2 (08:10→20:02)
[2020-02-12] MEDS: Azithromycin 500 MG in Sodium Chloride 0.9% 250 ML 250 ML IVPB SCH (12:12)
[2020-02-12] MEDS: methylPREDNISolone Sod Succ 40 MG VIAL IVP SCH ×2 (12:14→17:50)
[2020-02-12] MEDS ORDERED: Furosemide 20 MG/2 ML VIAL SLOW IVP SCH (15:45)
--- NOTE | 2020-02-12 16:37 | PRG ---
DATE OF SERVICE: 02/12/2020 SUBJECTIVE: Ms. Ruiz is sitting up in the bed. She is on high-flow nasal cannula oxygen in order to maintain oxygen saturations. She is not having chest pain. She does not appear to be in distress. OBJECTIVE: VITAL SIGNS: Her blood pressure 118/77, pulse in the mid 70s and sinus. LUNGS: Surprisingly clear. No wheezing. CARDIAC: No murmur, rub, or gallop. ABDOMEN: Soft and nontender. EXTREMITIES: Warm and dry. No clubbing or cyanosis. No edema. DIAGNOSTIC DATA: Chest x-ray shows diffuse interstitial and alveolar infiltrates compatible with worsening pneumonia. On the monitor, she is in sinus rhythm for the most of the time. She is having some atrial fibrillation at night. The rates are slower and are nonsustained. ASSESSMENT: 1. COVID pneumonia, severe, requiring high-flow oxygen. 2. Paroxysmal atrial arrhythmia, improving, but still present intermittently. PLAN: 1. She is on Multaq. 2. She is on low-dose diltiazem. 3. She is anticoagulated with Lovenox. Continue current medical regimen. Dr. Edwards to see this patient this weekend if needed. Prognosis is guarded with this degree of pneumonia. I also discussed the situation with the patient's family over the phone and one of the family members was on the phone, I also answered her questions. Job ID: [id number]
[2020-02-12] MEDS: Zinc Sulfate 220 MG CAP PO SCH (20:02)
[2020-02-12] MEDS: Cefepime 1 GM in Sodium Chloride 0.9% 100 ML IVPB SCH (20:02)
--- NOTE | 2020-02-12 23:01 | PDOC.HOSPP ---
- Subjective Encounter Date: 02/12/20 Encounter Time: 10:30 Subjective: Patient evaluated for respiratory failure due to COVID 19 pneumonia. Overnight events noted. Placed on high flow oxygen. Complains of some cough with production. Short of breath on minimal exertion - Objective Vital Signs & Weight: Vital Signs (12 hours) Temp Pulse Pulse Resp BP BP BP 02/12/20 18:15 98.8 F 75 20 129/79 02/12/20 17:00 98.8 F 75 20 129/79 02/12/20 12:50 99.1 F 78 24 H 118/77 Pulse Ox 02/12/20 18:15 100 02/12/20 17:00 100 02/12/20 12:50 99 Weight Weight 176 lb 2 oz I&O: 02/11/20 02/12/20 02/13/20 06:59 06:59 06:59 Intake Total 1999 1735 790 Balance 1999 1735 790 Result Diagrams: 02/12/20 04:35 02/12/20 04:35 Additional Labs: Abnormal Lab Results - Last 48 hrs 02/11/20 04:52: Chloride 116 H, Carbon Dioxide 15 L, AST 46 H, Albumin 3.1 L, Albumin/Globulin Ratio 1.0 L 02/11/20 04:52: WBC 11.5 H, RBC 3.67 L, Hgb 11.6 L, Hct 34.9 L, MCH 31.5 H, MPV 7.2 L, Neutrophils % 83.6 H, Lymphocytes % 9.7 L, Neutrophils # 9.6 H, Lymphocytes # 1.1 L, Monocytes # 0.7 H 02/12/20 00:30: Bicarbonate Actual 16.5 L, ABG pH 7.47 H, ABG pCO2 23.2 L*, ABG pO2 50.8 L*, ABG O2 Sat (Measured) 87.8 L, ABG O2 Content 15.6 L, ABG Base Excess -5.4 L, ABG Oxyhemoglobin 87.3 L, ABG Deoxyhemoglobin 12.1 H, A-a O2 Gradient 233.920 H, Chloride 111 H 02/12/20 04:35: Chloride 110 H, Carbon Dioxide 16 L, AST 47 H, Albumin 3.2 L, Albumin/Globulin Ratio 1.0 L 02/12/20 04:35: WBC 12.5 H, RBC 3.88 L, MCH 32.2 H, MPV 7.1 L, Band Neuts % (Manual) 13 H, Lymphocytes % (Manual) 9 L 02/12/20 04:35: B-Natriuretic Peptide 202.3 H 02/12/20 04:35: C-Reactive Protein 2.00 H 02/12/20 04:35: Ferritin 986.63 H 02/12/20 04:35: D-Dimer 0.83 H Microbiology - Entire Visit 02/12/20 18:00 Sputum Respiratory Culture - Preliminary Radiology Reviewed by me: Yes (Chest x-raybilateral worsening infiltrates) EKG Reviewed by me: Yes (Sinus rhythm on telemetry) Hospitalist ROS - Review of Systems Respiratory: denies: cough, dry, shortness of breath, hemoptysis, SOB with excertion, pleuritic pain, sputum, wheezing, other Cardiovascular: denies: chest pain, palpitations, orthopnea, paroxysmal noc. dyspnea, edema, light headedness, other - Medication Medications: Active Medications Generic Name Dose Route Start Last Admin Trade Name Freq PRN Reason Stop Dose Admin Albuterol Sulfate 2 puff 02/09/20 20:00 02/12/20 17:51 Albuterol 200 Puff (6.7gm Inhaler) INH 2 puff Q4H B[facility]RON Administration Ascorbic Acid 1,000 mg 02/10/20 09:00 02/12/20 08:07 Ascorbic Acid 500 Mg Chewable Tablet PO 1,000 mg DAILY B[facility]RON Administration Aspirin 81 mg 02/11/20 09:00 02/12/20 08:08 Aspirin 81 Mg Enteric Coated Tablet PO 81 mg DAILY B[facility]RON Administration Diltiazem HCl 120 mg 02/12/20 09:00 02/12/20 08:09 Diltiazem Cd 120 Mg Cap PO 120 mg DAILY B[facility]RON Administration Dronedarone 400 mg 02/11/20 08:00 02/12/20 17:50 Dronedarone Hcl 400 Mg Tab PO 400 mg BID- BAYRON Administration Enoxaparin Sodium 80 mg 02/10/20 21:00 02/12/20 20:02 Enoxaparin Sodium 80 Mg/0.8 Ml Syringe SC 80 mg 0900,2100 BAYRON Administration Famotidine 20 mg 02/09/20 09:00 02/12/20 20:02 Famotidine 20 Mg Tab PO 20 mg BID BAYRON Administration Furosemide 20 mg 02/12/20 15:45 02/12/20 20:03 Furosemide 20 Mg/2 Ml Vial SLOW IVP 02/13/20 15:46 20 mg WILLCALL BAYRON Administration Guaifenesin 600 mg 02/09/20 21:00 02/12/20 20:01 Guaifenesin Er 600 Mg Tab PO 600 mg Q12HR B[facility] Administration Guaifenesin/Dextromethorphan 15 ml 02/08/20 19:26 02/09/20 16:28 Guaifenesin Dm 100-10/5 Ml Udcup PO 15 ml Q4H PRN Administration Cough Cefepime HCl 1 gm/ Sodium 100 mls @ 200 mls/hr 02/12/20 21:00 02/12/20 20:02 Chloride IVPB 02/19/20 21:01 100 mls Q12HR B[facility]RON Administration Azithromycin 500 mg/ Sodium 250 mls @ 250 mls/hr 02/12/20 12:00 02/12/20 12:12 Chloride IVPB 02/19/20 12:01 250 mls Q24HR B[facility]RON Administration Methylprednisolone Sodium Succinate 40 mg 02/12/20 12:00 02/12/20 17:50 Methylprednisolone Sod Succ 40 Mg Vial IVP 40 mg Q6HR BAYRON Administration Multivitamins 1 tab 02/10/20 09:00 02/12/20 08:10 Multivit, Therapeutic 1 Tab PO 1 tab DAILY BAYRON Administration Sodium Chloride 10 ml 02/12/20 09:00 02/12/20 20:03 Flush - Normal Saline 10 Ml Syringe IVF 10 ml Q12HR B[facility] Administration Sodium Chloride 10 ml 02/12/20 06:15 02/12/20 17:51 Flush - Normal Saline 10 Ml Syringe IVF 10 ml PRN PRN Administration Saline Flush Zinc Sulfate 220 mg 02/09/20 21:00 02/12/20 20:02 Zinc Sulfate 220 Mg Cap PO 220 mg HS BAYRON Administration - Exam General Appearance: ill appearing General - other findings: On high flow oxygen Neck: supple, no JVD Heart: RRR, no gallops, no rubs, normal peripheral pulses Respiratory: rales, rhonchi, tachypneic, wheezes Gastrointestinal: soft, non-tender, non-distended, normal bowel sounds, no guarding, no rigidity Extremities: no cyanosis, no clubbing Neurological: no new deficit Psychiatric: normal affect, A&O x 3 Hosp A/P - Plan DVT proph w/lovenox Acute hypoxic respiratory failureStarted on high flow on 02/11 Sepsis due to COVID-19 pneumonia New onset atrial fibrillation with rapid ventricular response (started on 02/09)Currently in sinus rhythmS/p Cardizem drip Hypertension Hyperlipidemia Elevated inflammatory markers CKD stage II Metabolic acidosis Hypomagnesemia Plan: Overall patient got worse overnight requiring high flow oxygen. Chest x-ray now showing bilateral worsening infiltrates. Will consult pulmonary. Replace magnesium continue dexamethasone. Continue inhalers. Will continue Cardizem with multi and Lovenox for atrial fibrillation. Patient in sinus rhythm. Con tinue other medications as above
[2020-02-13] MEDS: Albuterol 200 PUFF (6.7GM INHALER) INH SCH ×6 (00:14→21:18)
[2020-02-13] MEDS: methylPREDNISolone Sod Succ 40 MG VIAL IVP SCH ×5 (00:29→22:43)
[2020-02-13 06:10] LABS: Band 2 % (5-11); Hemoglobin 11.4 g/dL (12.0-16.0); Lymphocytes 9 % (21-51); MDiff Complete? YES; Mean Corpuscular HGB CONC 34.3 g/dL (32.0-36.0); Mean Corpuscular Hemoglobin 31.9 pg (27.0-31.0); Mean Corpuscular Volume 93.2 fL (78.0-98.0); Mean Platelet Volume 7.3 fL (7.4-10.4); Monocytes 6 % (0-10); Neutrophil 83 % (42-75); Platelet Count 406 thou/uL (130-400); Platelet Morphology Comment Appears Increased; RBC Distribution Width 11.4 % (11.5-14.5); RBC Morphology Normal; Red Blood Cell (RBC) Count 3.57 mill/uL (4.20-5.40); White Blood Cell (WBC) Count 10.7 thou/uL (4.8-10.8)
[2020-02-13 06:24] LABS: ALT (SGPT) 40 U/L (8-55); AST (SGOT) 39 U/L (5-34); Albumin 3.4 g/dL (3.4-4.8); Alkaline Phosphatase 66 U/L (40-110); Anion Gap 16 mmol/L (10-20); BUN (Urea Nitrogen) 34 mg/dL (9.8-20.1); Bilirubin, Total 0.6 mg/dL (0.2-1.2); Calc. Creatinine Clearance 88 mL/min (70-130); Calcium 8.6 mg/dL (7.8-10.44); Carbon Dioxide 17 mmol/L (23-31); Chloride 109 mmol/L (98-107); Estimated GFR-MDRD 73; Globulin 3.3 g/dL (2.4-3.5); Glucose 137 mg/dL (80-115); Potassium 3.9 mmol/L (3.5-5.1); Protein, Total 6.7 g/dL (6.0-8.3); Sodium 138 mmol/L (136-145)
--- NOTE | 2020-02-13 07:16 | CON ---
DATE OF CONSULTATION: HISTORY OF PRESENT ILLNESS: Daniela Ruiz is a 64-year-old female who has been in the hospital now here for 4 days since 02/07, being consulted today after she had progressively worsened respiratory failure with new bilateral pulmonary infiltrates. She initially presented with nausea and diarrhea. Chest pain and saturations of % on room air. CT abdomen was negative. She had multiple contacts positive for coronavirus. She received Zithromax, fluids, and dexamethasone on admission. She is not coughing anything up at all and high-flow saturations are better. PAST MEDICAL HISTORY: Hyperlipidemia, high cholesterol, hypertension, atrial fibrillation. PAST SURGICAL HISTORY: Hysterectomy. SOCIAL HISTORY: Did smoke in the past 10 years ago, quit 8 years ago. HOME MEDICATIONS: 1. Lisinopril. 2. Pravastatin. ALLERGIES: NONE. REVIEW OF SYSTEMS: Unremarkable. PHYSICAL EXAMINATION: VITAL SIGNS: Temperature 98, pulse 80, respiratory rate , saturations %, rate 60% high-flow FiO2, blood pressure . CHEST: No wheezing, no crackles. CARDIAC: Normal S1, S2. No gallops. ABDOMEN: No masses. LABORATORY DATA: White count 12,000, H and H 12 and 36, platelet count 386, 71 segs, 13 bands. PO2 of 50, pCO2 C-reactive protein is 2. BNP was mildly elevated at 202. ASSESSMENT: 1. Worsening respiratory failure, bilateral bronchopneumonia. 2. Atrial fibrillation. 3. Coronavirus-positive pneumonia, though it appears rapid test was not detected. Repeat coronavirus PCR not detected. PLAN: Bag of convalescent plasma, steroids, empiric antibiotics. Supportive care. If condition gets worse, she will be transferred to the ICU. Consultation note, 70 minutes, 50% direct patient care. Job ID: [id number]
[2020-02-13] MEDS: Enoxaparin Sodium 80 MG/0.8 ML SYRINGE SC SCH ×2 (07:50→21:17)
[2020-02-13] MEDS: Cefepime 1 GM in Sodium Chloride 0.9% 100 ML IVPB SCH ×2 (07:50→21:16)
[2020-02-13] MEDS: Multivit, Therapeutic 1 TAB PO SCH (07:51)
[2020-02-13] MEDS: Ascorbic Acid 500 mg Chewable Tablet PO SCH (07:51)
[2020-02-13] MEDS: guaiFENesin ER 600 MG TAB PO SCH ×2 (07:51→21:18)
[2020-02-13] MEDS: Famotidine 20 MG TAB PO SCH ×2 (07:51→21:17)
[2020-02-13] MEDS: Dronedarone HCl 400 MG TAB PO SCH ×2 (07:51→17:07)
[2020-02-13] MEDS: Aspirin 81 mg Enteric Coated Tablet PO SCH (07:51)
[2020-02-13] MEDS: Azithromycin 500 MG in Sodium Chloride 0.9% 250 ML 250 ML IVPB SCH (11:41)
--- NOTE | 2020-02-13 16:28 | PDOC.HOSPP ---
- Subjective Encounter Date: 02/13/20 Encounter Time: 16:27 Subjective: 64-year-old woman admitted to the hospital for COVID-19 pneumonia and respiratory failure. She is on high flow nasal cannula and seems to be doing reasonably well. - Objective Vital Signs & Weight: Vital Signs (12 hours) Temp Pulse Resp BP Pulse Ox 02/13/20 15:50 98.4 F 71 22 H 117/78 100 02/13/20 11:45 98.2 F 77 20 111/68 100 02/13/20 08:00 98.9 F 73 20 134/80 98 02/13/20 04:55 98.3 F 74 19 135/79 100 02/13/20 04:27 93 L Weight Weight 176 lb 2 oz I&O: 02/12/20 02/13/20 02/14/20 06:59 06:59 05:59 Intake Total 1735 1440 Balance 1735 1440 Result Diagrams: 02/13/20 05:24 02/13/20 05:24 Radiology Reviewed by me: Yes EKG Reviewed by me: Yes Hospitalist ROS - Review of Systems Constitutional: reports: fever, sweats Respiratory: reports: cough, dry, shortness of breath, SOB with excertion Neurological: reports: weakness - Medication Medications: Active Medications Generic Name Dose Route Start Last Admin Trade Name Meirq PRN Reason Stop Dose Admin Albuterol Sulfate 2 puff 02/09/20 20:00 02/13/20 11:41 Albuterol 200 Puff (6.7gm Inhaler) INH 2 puff Q4H B[facility] Administration Ascorbic Acid 1,000 mg 02/10/20 09:00 02/13/20 07:51 Ascorbic Acid 500 Mg Chewable Tablet PO 1,000 mg DAILY B[facility] Administration Aspirin 81 mg 02/11/20 09:00 02/13/20 07:51 Aspirin 81 Mg Enteric Coated Tablet PO 81 mg DAILY B[facility] Administration Diltiazem HCl 120 mg 02/12/20 09:00 02/13/20 07:51 Diltiazem Cd 120 Mg Cap PO 120 mg DAILY B[facility] Administration Dronedarone 400 mg 02/11/20 08:00 02/13/20 07:51 Dronedarone Hcl 400 Mg Tab PO 400 mg BID- B[facility] Administration Enoxaparin Sodium 80 mg 02/10/20 21:00 02/13/20 07:50 Enoxaparin Sodium 80 Mg/0.8 Ml Syringe SC 80 mg 0900,2100 B[facility] Administration Famotidine 20 mg 02/09/20 09:00 02/13/20 07:51 Famotidine 20 Mg Tab PO 20 mg BID B[facility] Administration Guaifenesin 600 mg 02/09/20 21:00 02/13/20 07:51 Guaifenesin Er 600 Mg Tab PO 600 mg Q12HR B[facility] Administration Guaifenesin/Dextromethorphan 15 ml 02/08/20 19:26 02/09/20 16:28 Guaifenesin Dm 100-10/5 Ml Udcup PO 15 ml Q4H PRN Administration Cough Cefepime HCl 1 gm/ Sodium 100 mls @ 200 mls/hr 02/12/20 21:00 02/13/20 07:50 Chloride IVPB 02/19/20 21:01 100 mls Q12HR B[facility] Administration Azithromycin 500 mg/ Sodium 250 mls @ 250 mls/hr 02/12/20 12:00 02/13/20 11:41 Chloride IVPB 02/19/20 12:01 250 mls Q24HR B[facility] Administration Methylprednisolone Sodium Succinate 40 mg 02/12/20 12:00 02/13/20 11:41 Methylprednisolone Sod Succ 40 Mg Vial IVP 40 mg Q6HR B[facility] Administration Multivitamins 1 tab 02/10/20 09:00 02/13/20 07:51 Multivit, Therapeutic 1 Tab PO 1 tab DAILY B[facility] Administration Sodium Chloride 10 ml 02/12/20 09:00 02/13/20 07:52 Flush - Normal Saline 10 Ml Syringe IVF 10 ml Q12HR B[facility] Administration Sodium Chloride 10 ml 02/12/20 06:15 02/13/20 04:53 Flush - Normal Saline 10 Ml Syringe IVF 10 ml PRN PRN Administration Saline Flush Zinc Sulfate 220 mg 02/09/20 21:00 02/12/20 20:02 Zinc Sulfate 220 Mg Cap PO 220 mg HS B[facility] Administration - Exam General Appearance: awake alert Eye: PERRL Neck: supple, symmetric, no JVD, no lymphadenopathy Heart: RRR Respiratory: no tachypnea, rales, wheezes Gastrointestinal: soft, non-tender, non-distended, normal bowel sounds, no guard ing Extremities: no cyanosis Neurological: cranial nerve grossly intact, normal sensation to touch, no weakness, no focal deficits Musculoskeletal: normal tone, normal strength Psychiatric: normal affect, normal behavior, A&O x 3, oriented to person, oriented to place, oriented to time Hosp A/P (1) Pneumonia due to COVID-19 virus Code(s): U07.1 - COVID-19; J12.89 - OTHER VIRAL PNEUMONIA Status: Acute - Plan old records reviewed/req #1. Acute respiratory failure with hypoxia. Secondary to COVID-19 virus. Continue O2 supplementation and will wean as tolerated. #2. COVID-19 pneumonia. Continue supportive care with IV antibiotics. Follow-up on no active cultures. Appreciate ID services.
--- NOTE | 2020-02-13 17:36 | PRG ---
DATE OF SERVICE: 02/13/2020 HISTORY OF PRESENT ILLNESS: She remains on supplemental oxygen and subjectively is a little bit better. Her COVID PCR was negative, however, COVID IgG antibody is positive suggesting semi-acute infection. She is being treated with steroids, azithromycin. Given inconsistent known positive COVID date, it is difficult to justify remdesivir. She was given convalescence serum. PHYSICAL EXAMINATION: VITAL SIGNS: Blood pressure 124/77, heart rate is 71, respiratory rate is 22. She is on high-flow oxygen at 50 L at 60%. LUNGS: Rhonchi. HEART: Regular rate and rhythm. ABDOMEN: Soft. LABORATORY DATA: White count today 10,700 with hemoglobin 11.4 and hematocrit of 33.3, platelet count is 406,000. Chemistry notable for sodium 138, potassium 3.9, chloride 109, CO2 of 17, BUN 34, and creatinine 0.8. Her liver tests are negative. IMPRESSION: COVID pneumonia, although now with positive antibodies and negative PCR screen suggesting subacute infection. She remains on significant oxygen supplementation 60% high-flow nasal cannula. PLAN: We will continue current therapies. Medically, she is not at the point of discharge home until her oxygen demands have dramatically improved. Job ID: [id number]
[2020-02-13] MEDS: Zinc Sulfate 220 MG CAP PO SCH (21:17)
[2020-02-14] MEDS: Albuterol 200 PUFF (6.7GM INHALER) INH SCH ×6 (00:15→21:55)
[2020-02-14] MEDS: methylPREDNISolone Sod Succ 40 MG VIAL IVP SCH ×4 (05:32→23:19)
[2020-02-14 06:17] LABS: Anion Gap 13 mmol/L (10-20); BUN (Urea Nitrogen) 37 mg/dL (9.8-20.1); Calc. Creatinine Clearance 91 mL/min (70-130); Calcium 8.4 mg/dL (7.8-10.44); Carbon Dioxide 19 mmol/L (23-31); Chloride 112 mmol/L (98-107); Estimated GFR-MDRD 75; Glucose 137 mg/dL (80-115); Magnesium 2.2 mg/dL (1.6-2.6); Potassium 4.2 mmol/L (3.5-5.1); Sodium 140 mmol/L (136-145)
[2020-02-14 06:28] LABS: Band 2 % (5-11); Hemoglobin 9.7 g/dL (12.0-16.0); Lymphocytes 9 % (21-51); MDiff Complete? YES; Mean Corpuscular HGB CONC 34.4 g/dL (32.0-36.0); Mean Corpuscular Hemoglobin 32.3 pg (27.0-31.0); Mean Corpuscular Volume 93.8 fL (78.0-98.0); Mean Platelet Volume 7.4 fL (7.4-10.4); Monocytes 3 % (0-10); Neutrophil 86 % (42-75); Platelet Count 393 thou/uL (130-400); Platelet Morphology Comment Appears Adequate; RBC Distribution Width 11.4 % (11.5-14.5); RBC Morphology Normal; White Blood Cell (WBC) Count 9.7 thou/uL (4.8-10.8)
[2020-02-14] MEDS: Dronedarone HCl 400 MG TAB PO SCH ×2 (09:04→16:54)
[2020-02-14] MEDS: Aspirin 81 mg Enteric Coated Tablet PO SCH (09:05)
[2020-02-14] MEDS: Cefepime 1 GM in Sodium Chloride 0.9% 100 ML IVPB SCH ×2 (09:06→22:11)
[2020-02-14] MEDS: Enoxaparin Sodium 80 MG/0.8 ML SYRINGE SC SCH ×2 (09:08→22:08)
[2020-02-14] MEDS: guaiFENesin ER 600 MG TAB PO SCH ×2 (09:08→22:07)
[2020-02-14] MEDS: Famotidine 20 MG TAB PO SCH ×2 (09:08→22:07)
[2020-02-14] MEDS: Multivit, Therapeutic 1 TAB PO SCH (09:09)
[2020-02-14] MEDS: Ascorbic Acid 500 mg Chewable Tablet PO SCH (09:17)
--- NOTE | 2020-02-14 10:39 | PDOC.HOSPP ---
- Subjective Encounter Date: 02/14/20 Encounter Time: 10:40 Subjective: Patient was seen and evaluated this morning. She remains on high flow nasal cannula and she is actually saturating anywhere from 98 to 100% on 60% FiO2. We are going to try to wean her off. - Objective Vital Signs & Weight: Vital Signs (12 hours) Temp Pulse Resp BP Pulse Ox 02/14/20 03:27 97.8 F 70 20 154/73 H 98 Weight Weight 176 lb 2 oz I&O: 02/13/20 02/14/20 02/15/20 07:59 06:59 06:59 Intake Total Balance Result Diagrams: 02/14/20 05:20 02/14/20 05:20 Radiology Reviewed by me: Yes EKG Reviewed by me: Yes Hospitalist ROS - Review of Systems Constitutional: reports: chills, weakness Respiratory: reports: cough, dry, shortness of breath, SOB with excertion Gastrointestinal: reports: nausea Neurological: reports: weakness - Medication Medications: Active Medications Generic Name Dose Route Start Last Admin Trade Name Meirq PRN Reason Stop Dose Admin Albuterol Sulfate 2 puff 02/09/20 20:00 02/14/20 09:03 Albuterol 200 Puff (6.7gm Inhaler) INH 2 puff Q4H B[facility] Administration Ascorbic Acid 1,000 mg 02/10/20 09:00 02/14/20 09:17 Ascorbic Acid 500 Mg Chewable Tablet PO 1,000 mg DAILY B[facility] Administration Aspirin 81 mg 02/11/20 09:00 02/14/20 09:05 Aspirin 81 Mg Enteric Coated Tablet PO 81 mg DAILY B[facility] Administration Diltiazem HCl 120 mg 02/12/20 09:00 02/14/20 09:06 Diltiazem Cd 120 Mg Cap PO 120 mg DAILY B[facility] Administration Dronedarone 400 mg 02/11/20 08:00 02/14/20 09:04 Dronedarone Hcl 400 Mg Tab PO 400 mg BID-WM B[facility] Administration Enoxaparin Sodium 80 mg 02/10/20 21:00 02/14/20 09:08 Enoxaparin Sodium 80 Mg/0.8 Ml Syringe SC 80 mg 0900,2100 B[facility] Administration Famotidine 20 mg 02/09/20 09:00 02/14/20 09:08 Famotidine 20 Mg Tab PO 20 mg BID B[facility] Administration Guaifenesin 600 mg 02/09/20 21:00 02/14/20 09:08 Guaifenesin Er 600 Mg Tab PO 600 mg Q12HR [facility] Administration Guaifenesin/Dextromethorphan 15 ml 02/08/20 19:26 02/09/20 16:28 Guaifenesin Dm 100-10/5 Ml Udcup PO 15 ml Q4H PRN Administration Cough Cefepime HCl 1 gm/ Sodium 100 mls @ 200 mls/hr 02/12/20 21:00 02/14/20 09:06 Chloride IVPB 02/19/20 21:01 100 mls Q12HR B[facility] Administration Azithromycin 500 mg/ Sodium 250 mls @ 250 mls/hr 02/12/20 12:00 02/13/20 11:41 Chloride IVPB 02/19/20 12:01 250 mls Q24HR B[facility] Administration Methylprednisolone Sodium Succinate 40 mg 02/12/20 12:00 02/14/20 05:32 Methylprednisolone Sod Succ 40 Mg Vial IVP 40 mg Q6HR B[facility] Administration Multivitamins 1 tab 02/10/20 09:00 02/14/20 09:09 Multivit, Therapeutic 1 Tab PO 1 tab DAILY B[facility] Administration Sodium Chloride 10 ml 02/12/20 09:00 02/14/20 09:10 Flush - Normal Saline 10 Ml Syringe IVF 10 ml Q12HR [facility] Administration Sodium Chloride 10 ml 02/12/20 06:15 02/13/20 04:53 Flush - Normal Saline 10 Ml Syringe IVF 10 ml PRN PRN Administration Saline Flush Zinc Sulfate 220 mg 02/09/20 21:00 02/13/20 21:17 Zinc Sulfate 220 Mg Cap PO 220 mg HS B[facility] Administration - Exam General Appearance: awake alert, ill appearing Eye: PERRL ENT: normocephalic atraumatic, no oropharyngeal lesions, moist mucosa Neck: supple, symmetric, no JVD Heart: RRR, no murmur, no gallops Respiratory: no rales, normal chest expansion, wheezes Gastrointestinal: soft, non-tender, non-distended, normal bowel sounds Extremities: no cyanosis, no clubbing, no edema Neurological: cranial nerve grossly intact Musculoskeletal: normal tone, normal strength, no muscle wasting Psychiatric: normal affect, normal behavior, A&O x 3, oriented to person, oriented to place, oriented to time Hosp A/P (1) Pneumonia due to COVID-19 virus Code(s): U07.1 - COVID-19; J12.89 - OTHER VIRAL PNEUMONIA Status: Acute (2) Acute respiratory failure due to COVID-19 Code(s): U07.1 - COVID-19; J96.00 - ACUTE RESPIRATORY FAILURE, UNSP W HYPOXIA OR HYPERCAPNIA Status: Acute Plan: Respiratory failure secondary to below. She remains on high flow nasal cannula. We will attempt to wean this off. (3) Acute respiratory failure with hypoxemia Code(s): J96.01 - ACUTE RESPIRATORY FAILURE WITH HYPOXIA Status: Acute Plan: As above. - Plan plan discussed w/ family, continue antibiotics, respiratory therapy, incentive spirometry, DVT proph w/lovenox #1. Acute respiratory failure with hypoxia. Secondary to COVID-19 virus. Continue O2 supplementation and will wean as tolerated. 02/14/2020. She is saturating very well on high flow nasal cannula. We will attempt to wean that off hopefully in the next few days. #2. COVID-19 pneumonia. Continue supportive care with IV antibiotics. Follow-up on no active cultures. Appreciate ID services. 02/14/2020. Continue supportive care as above.
[2020-02-14] MEDS: Azithromycin 500 MG in Sodium Chloride 0.9% 250 ML 250 ML IVPB SCH (12:23)
[2020-02-14] MEDS: Zinc Sulfate 220 MG CAP PO SCH (22:08)
[2020-02-15] MEDS: Albuterol 200 PUFF (6.7GM INHALER) INH SCH ×6 (00:30→20:09)
[2020-02-15 05:28] LABS: Anion Gap 13 mmol/L (10-20); BUN (Urea Nitrogen) 38 mg/dL (9.8-20.1); Calc. Creatinine Clearance 97 mL/min (70-130); Calcium 8.4 mg/dL (7.8-10.44); Carbon Dioxide 19 mmol/L (23-31); Chloride 111 mmol/L (98-107); Estimated GFR-MDRD 81; Glucose 138 mg/dL (80-115); Potassium 4.5 mmol/L (3.5-5.1); Sodium 138 mmol/L (136-145)
[2020-02-15 05:30] LABS: Band 7 % (5-11); Hemoglobin 8.5 g/dL (12.0-16.0); Lymphocytes 9 % (21-51); MDiff Complete? YES; Mean Corpuscular HGB CONC 34.9 g/dL (32.0-36.0); Mean Corpuscular Hemoglobin 32.6 pg (27.0-31.0); Mean Corpuscular Volume 93.5 fL (78.0-98.0); Mean Platelet Volume 7.5 fL (7.4-10.4); Monocytes 1 % (0-10); Neutrophil 83 % (42-75); Platelet Count 364 thou/uL (130-400); Platelet Morphology Comment Appears Adequate; RBC Distribution Width 11.4 % (11.5-14.5); White Blood Cell (WBC) Count 9.1 thou/uL (4.8-10.8)
[2020-02-15] MEDS: methylPREDNISolone Sod Succ 40 MG VIAL IVP SCH ×3 (05:53→16:27)
[2020-02-15] MEDS: Ascorbic Acid 500 mg Chewable Tablet PO SCH (08:35)
[2020-02-15] MEDS: Aspirin 81 mg Enteric Coated Tablet PO SCH (08:35)
[2020-02-15] MEDS: Dronedarone HCl 400 MG TAB PO SCH ×2 (08:35→16:26)
[2020-02-15] MEDS: Enoxaparin Sodium 80 MG/0.8 ML SYRINGE SC SCH ×2 (08:36→20:10)
[2020-02-15] MEDS: Famotidine 20 MG TAB PO SCH ×2 (08:37→20:10)
[2020-02-15] MEDS: Multivit, Therapeutic 1 TAB PO SCH (08:37)
[2020-02-15] MEDS: guaiFENesin ER 600 MG TAB PO SCH ×2 (08:37→20:10)
[2020-02-15] MEDS: Cefepime 1 GM in Sodium Chloride 0.9% 100 ML IVPB SCH ×2 (08:40→20:09)
--- NOTE | 2020-02-15 10:50 | PDOC.HOSPP ---
- Subjective Encounter Date: 02/15/20 Encounter Time: 10:48 Subjective: I saw and evaluated this woman at the bedside this morning. She is a 64-year-old with Covid pneumonia admitted for further treatment. She has been on high flow nasal cannula but we will begin to wean her down today. She is saturating 100% on 40 L with 40% of FiO2. She is closer to being discharged home. - Objective Vital Signs & Weight: Vital Signs (12 hours) Pulse Ox 02/15/20 07:29 100 02/15/20 05:12 100 Weight Weight 176 lb 2 oz I&O: 02/14/20 02/15/20 02/16/20 06:59 06:59 06:59 Intake Total 1840 Balance 1840 Result Diagrams: 02/15/20 04:46 02/15/20 04:46 Radiology Reviewed by me: Yes EKG Reviewed by me: Yes Hospitalist ROS - Review of Systems Constitutional: reports: weakness, malaise Respiratory: reports: cough, dry, shortness of breath, SOB with excertion, sputum, wheezing Neurological: reports: weakness - Medication Medications: Active Medications Generic Name Dose Route Start Last Admin Trade Name Freq PRN Reason Stop Dose Admin Albuterol Sulfate 2 puff 02/09/20 20:00 02/15/20 08:34 Albuterol 200 Puff (6.7gm Inhaler) INH 2 puff Q4H B[facility] Administration Ascorbic Acid 1,000 mg 02/10/20 09:00 02/15/20 08:35 Ascorbic Acid 500 Mg Chewable Tablet PO 1,000 mg DAILY B[facility] Administration Aspirin 81 mg 02/11/20 09:00 02/15/20 08:35 Aspirin 81 Mg Enteric Coated Tablet PO 81 mg DAILY ABYRON Administration Diltiazem HCl 120 mg 02/12/20 09:00 02/15/20 08:36 Diltiazem Cd 120 Mg Cap PO 120 mg DAILY B[facility] Administration Dronedarone 400 mg 02/11/20 08:00 02/15/20 08:35 Dronedarone Hcl 400 Mg Tab PO 400 mg BID-WM [facility] Administration Enoxaparin Sodium 80 mg 02/10/20 21:00 02/15/20 08:36 Enoxaparin Sodium 80 Mg/0.8 Ml Syringe SC 80 mg 0900,2100 B[facility] Administration Famotidine 20 mg 02/09/20 09:00 02/15/20 08:37 Famotidine 20 Mg Tab PO 20 mg BID B[facility] Administration Guaifenesin 600 mg 02/09/20 21:00 02/15/20 08:37 Guaifenesin Er 600 Mg Tab PO 600 mg Q12HR [facility] Administration Guaifenesin/Dextromethorphan 15 ml 02/08/20 19:26 02/09/20 16:28 Guaifenesin Dm 100-10/5 Ml Udcup PO 15 ml Q4H PRN Administration Cough Cefepime HCl 1 gm/ Sodium 100 mls @ 200 mls/hr 02/12/20 21:00 02/15/20 08:40 Chloride IVPB 02/19/20 21:01 100 mls Q12HR B[facility] Administration Azithromycin 500 mg/ Sodium 250 mls @ 250 mls/hr 02/12/20 12:00 02/14/20 12:23 Chloride IVPB 02/19/20 12:01 250 mls Q24HR B[facility] Administration Methylprednisolone Sodium Succinate 40 mg 02/12/20 12:00 02/15/20 05:53 Methylprednisolone Sod Succ 40 Mg Vial IVP 40 mg Q6HR B[facility] Administration Multivitamins 1 tab 02/10/20 09:00 02/15/20 08:37 Multivit, Therapeutic 1 Tab PO 1 tab DAILY B[facility] Administration Sodium Chloride 10 ml 02/12/20 09:00 02/15/20 08:37 Flush - Normal Saline 10 Ml Syringe IVF 10 ml Q12HR [facility] Administration Sodium Chloride 10 ml 02/12/20 06:15 02/15/20 05:54 Flush - Normal Saline 10 Ml Syringe IVF 10 ml PRN PRN Administration Saline Flush Zinc Sulfate 220 mg 02/09/20 21:00 02/14/20 22:08 Zinc Sulfate 220 Mg Cap PO 220 mg HS B[facility] Administration - Exam General Appearance: NAD, awake alert Eye: PERRL, anicteric sclera ENT: normocephalic atraumatic, no oropharyngeal lesions, moist mucosa Neck: supple, symmetric, no JVD, no thyromegaly, no lymphadenopathy Heart: RRR Respiratory: no rales, no ronchi, normal chest expansion, no tachypnea, wheezes Gastrointestinal: soft, non-tender, non-distended, normal bowel sounds, no palpable masses Extremities: no cyanosis Neurological: cranial nerve grossly intact Musculoskeletal: normal tone Psychiatric: normal affect, normal behavior, A&O x 3 Hosp A/P (1) Pneumonia due to COVID-19 virus Code(s): U07.1 - COVID-19; J12.89 - OTHER VIRAL PNEUMONIA Status: Acute Plan: Continue supportive care as we are doing. (2) Acute respiratory failure due to COVID-19 Code(s): U07.1 - COVID-19; J96.00 - ACUTE RESPIRATORY FAILURE, UNSP W HYPOXIA OR HYPERCAPNIA Status: Acute Plan: We are going to turn her down on the high flow nasal cannula. (3) Acute respiratory failure with hypoxemia Code(s): J96.01 - ACUTE RESPIRATORY FAILURE WITH HYPOXIA Status: Acute - Plan #1. Acute respiratory failure with hypoxia. Secondary to COVID-19 virus. Continue O2 supplementation and will wean as tolerated. 02/14/2020. She is saturating very well on high flow nasal cannula. We will attempt to wean that off hopefully in the next few days. 02/15/2020. We will discontinue high flow nasal cannula today. #2. COVID-19 pneumonia. Continue supportive care with IV antibiotics. Follow-up on no active cultures. Appreciate ID services. 02/14/2020. Continue supportive care as above.
--- NOTE | 2020-02-15 11:00 | PRG ---
DATE OF SERVICE: 02/15/2020 SUBJECTIVE: This morning, she is better. OBJECTIVE: VITAL SIGNS: Temperature 98, sats 100% on high flow rate, but on 5 L nasal O2, sats adequate, blood pressure respiratory rate 18. GENERAL: She says she is a little better. CHEST: No wheezing. No crackles. CARDIAC: Normal S1. Normal S2. No gallops. ABDOMEN: No masses. LABORATORY DATA: Unremarkable. IMPRESSION: Alejo positive pneumonia, respiratory failure. PLAN: Probably, switch over to oral antibiotic steroids tomorrow if she remains stable. Continue with supportive care. Job ID: [id number]
[2020-02-15] MEDS: Azithromycin 500 MG in Sodium Chloride 0.9% 250 ML 250 ML IVPB SCH (12:10)
--- NOTE | 2020-02-15 15:58 | RAD ---
PORTABLE CHEST: History: Follow up Covid pneumonia. FINDINGS: Heart size is slightly enlarged. Bilateral multifocal infiltrates consistent with Covid pneumonia hav e definitely improved as compared to the prior exam. IMPRESSION: Definite improvement to the multifocal areas of infiltrate. POS: CECILIA
[2020-02-15] MEDS: Zinc Sulfate 220 MG CAP PO SCH (20:10)
[2020-02-16] MEDS: methylPREDNISolone Sod Succ 40 MG VIAL IVP SCH ×2 (00:28→05:03)
[2020-02-16] MEDS: Albuterol 200 PUFF (6.7GM INHALER) INH SCH ×5 (00:29→16:40)
[2020-02-16] MEDS ORDERED: predniSONE 20 MG TAB PO SCH (08:00)
[2020-02-16] MEDS: Cefepime 1 GM in Sodium Chloride 0.9% 100 ML IVPB SCH (09:48)
[2020-02-16] MEDS: guaiFENesin ER 600 MG TAB PO SCH (09:48)
[2020-02-16] MEDS: Enoxaparin Sodium 80 MG/0.8 ML SYRINGE SC SCH (09:48)
[2020-02-16] MEDS: Ascorbic Acid 500 mg Chewable Tablet PO SCH (09:48)
[2020-02-16] MEDS: Famotidine 20 MG TAB PO SCH (09:48)
[2020-02-16] MEDS: Multivit, Therapeutic 1 TAB PO SCH (09:49)
[2020-02-16] MEDS: Dronedarone HCl 400 MG TAB PO SCH (09:49)
[2020-02-16] MEDS: Azithromycin 500 MG in Sodium Chloride 0.9% 250 ML 250 ML IVPB SCH (13:00)
--- NOTE | 2020-02-16 14:27 | PDOC.DS.DS ---
Provider - Provider Date of Admission: 02/08/20 19:26 Date of Discharge: 02/16/20 Admitting Provider: Ventura Velarde Consultations: Infectious Disease, Pulmonary Primary Care Physician: Francisco Javier Bustos MD Course - Hospital Course Hospital Course: 64-year-old woman admitted to the hospital for Covid pneumonia. She required high flow nasal cannula due to severe respiratory failure during the course of the stay. This has eventually been titrated off and she is doing very well. She tolerated her antibiotics well. She has been weaned completely off of the high flow nasal cannula. During the course of her stay she was seen by both infectious disease and pulmonary services. She has done well and is promptly discharged home today in stable condition. Resuscitation Status: 02/08/20 19:26 Resuscitation Status Routine Resuscitation Status: FULL: Full Resuscitation - Labs Lab Results: 02/15/20 04:46 02/15/20 04:46 Abnormal Lab Results - Last 48 hrs 02/15/20 04:46: Chloride 111 H, Carbon Dioxide 19 L, BUN 38 H 02/15/20 04:46: RBC 2.60 L, Hgb 8.5 L, Hct 24.3 L, MCH 32.6 H, RDW 11.4 L, Neutrophils % (Manual) 83 H, Lymphocytes % (Manual) 9 L Microbiology - Entire Visit 02/12/20 18:00 Sputum Respiratory Culture - Final - Physical Exam Vitals: Vital Signs (12 hours) Temp Pulse Resp BP Pulse Ox 02/16/20 13:05 98.4 F 75 20 103/60 98 02/16/20 09:40 98.1 F 70 20 114/53 L 100 02/16/20 08:32 98 02/16/20 08:20 100 02/16/20 05:58 98 02/16/20 05:10 97.3 F L 81 20 99/62 98 Weight Weight 176 lb 2 oz Physical Exam: The patient was seen and examined on the day of discharge. Problem - Discharge Plan Assessment: Patient is clinically stable for discharge home. - Problem (1) Pneumonia due to COVID-19 virus Code(s): U07.1 - COVID-19; J12.89 - OTHER VIRAL PNEUMONIA Status: Acute Plan: She has recovered. We discussed self quarantine at home. She needs to take all necessary precautions. (2) Acute respiratory failure due to COVID-19 Code(s): U07.1 - COVID-19; J96.00 - ACUTE RESPIRATORY FAILURE, UNSP W HYPOXIA OR HYPERCAPNIA Status: Acute Plan: She has been weaned off from the high flow nasal cannula. She is saturating above 95%. (3) Acute respiratory failure with hypoxemia Code(s): J96.01 - ACUTE RESPIRATORY FAILURE WITH HYPOXIA Status: Resolved Plan - Discharge Medications Prescriptions: Doxycycline [Vibramycin] 100 mg PO Q12HR #14 cap predniSONE 40 mg PO QAM-WM 7 Days tab Benzonatate [Tessalon] 100 mg PO TID PRN #30 cap PRN Reason: Cough Zinc Sulfate 220 mg PO HS #20 cap Home Medications: Medication Instructions Recorded Confirmed Type Lisinopril 5 mg PO DAILY 02/08/20 02/08/20 History Simvastatin 20 mg PO HS 02/08/20 02/08/20 History Benzonatate [Tessalon] 100 mg PO TID PRN #30 cap 02/16/20 Rx Doxycycline [Vibramycin] 100 mg PO Q12HR #14 cap 02/16/20 Rx Dronedarone HCl [Multaq] 400 mg PO BID-WM tab 02/16/20 Rx Zinc Sulfate 220 mg PO HS #20 cap 02/16/20 Rx cloNIDine [Catapres] 0.1 mg PO Q4H PRN tab 02/16/20 Rx predniSONE 40 mg PO QAM-WM 7 Days tab 02/16/20 Rx Allergies: No Known Allergies Allergy (Verified 02/08/20 22:57) - Discharge Instructions Activity:: Activity as Tolerated, Activity Restrictions (self quarantine at home) Nourishment:: Regular Diet Therapies:: Not Applicable Equipment/Supplies:: Incentive Spirometry, Not Applicable - Follow up Plan Referrals: Francisco Javier Bustos MD [Primary Care Provider] - Disposition: HOME Quality - Care Measures CORE MEASURES:: N/A
--- NOTE | 2020-02-16 15:46 | PRG ---
DATE OF SERVICE: 02/16/2020 SUBJECTIVE: Daniela Ruiz this morning, she is doing better. X-ray shows improvement in her infiltrates. OBJECTIVE: VITAL SIGNS: Temperature 98, , saturations 90% on 1.5 L, blood pressure 103/60. CHEST: No wheezing. No crackles. CARDIAC: Normal S1 and S2. No gallops. ABDOMEN: No masses. ASSESSMENT: Respiratory failure, green positive pneumonia. PLAN: She will be discharged home on tapering dose of prednisone, doxycycline 100 mg twice a day. Job ID: [id number]
[2020-02-16 16:19] VITALS: BP 102/62; TEMP 98.2
--- NOTE | 2020-02-17 19:14 | EKG ---
Test Reason : STAT Blood Pressure : / mmHG Vent. Rate : 164 BPM Atrial Rate : 138 BPM P-R Int : 000 ms QRS Dur : 088 ms QT Int : 262 ms P-R-T Axes : 000 -33 190 degrees QTc Int : 432 ms Atrial fibrillation with rapid ventricular response Left axis deviation Marked ST abnormality, possible inferior subendocardial injury Abnormal ECG No previous ECGs available Confirmed by CHETNA ELLIOTT, DR. Fountain ([id number]) on 02/17/2020 7:14:36 PM Referred By: GAEL Confirmed By:DR. Александр BASILIO MD
== END 2020-02-16 17:10 | disposition home or self-care (01) | DRG 871 ==
LOC: ERS 18:19 → 2NO 19:26 → 2SW 23:43
PROVIDERS: ADMIT Internal Medicine; ATTEND Hospitalist
PROC: 8E0ZXY6 Isolation (ICD-10-PCS; principal; 2020-02-08)
DX: A41.89 Other specified sepsis (principal); U07.1 COVID-19; J12.89 Other viral pneumonia; J96.01 Acute respiratory failure with hypoxia; I21.A1 Myocardial infarction type 2; E87.2 Acidosis; I12.9 Hypertensive chronic kidney disease with stage 1 through stage 4 chronic kidney disease, or unspecified chronic kidney disease; E83.42 Hypomagnesemia; I48.91 Unspecified atrial fibrillation; N18.30 Chronic kidney disease, stage 3 unspecified; E78.00 Pure hypercholesterolemia, unspecified; E78.5 Hyperlipidemia, unspecified; Z79.899 Other long term (current) drug therapy; Z90.710 Acquired absence of both cervix and uterus; Z87.891 Personal history of nicotine dependence
CPT/HCPCS: 36415; 36430; 71045; 80048; 80053; 82010; 82553; 82728; 82805; 83605; 83615; 83735; 83880; 84100; 84145; 85025; 85379; 86140; 86769; 86850; 86900; 86901; 87070; 87205; 87635; 93005; 93010; 99285; J0456; J0692; J0696; J1100; J1650; J1940; J2920; J3475; J3490; J7050; J7512; P9017; U0002; U0003

== ENCOUNTER 2020-02-25 10:31 | Emergency (ER) | payer MEDICARE, OTHER ==
[2020-02-25 11:33] LABS: #Eosinphils 0.2 thou/uL (0.0-0.7); #Lymphocytes 1.2 thou/uL (1.20-3.40); #Monocytes 0.4 thou/uL (0.11-0.59); #Neutrophils 4.7 thou/uL (1.40-6.50); %Basophils 0.3 % (0.0-1.0); %Eosinophils 2.7 % (0.0-10.0); %Lymphocytes 18.3 % (21.0-51.0); %Monocytes 6.2 % (0.0-10.0); %Neutrophils 72.5 % (42.0-75.0); Mean Platelet Volume 7.1 fL (7.4-10.4); Platelet Count 362 thou/uL (130-400); RBC Distribution Width 16.5 % (11.5-14.5); Red Blood Cell (RBC) Count 1.89 mill/uL (4.20-5.40); White Blood Cell (WBC) Count 6.5 thou/uL (4.8-10.8)
[2020-02-25 12:13] LABS: ALT (SGPT) 36 U/L (8-55); AST (SGOT) 30 U/L (5-34); Albumin 3.3 g/dL (3.4-4.8); Alkaline Phosphatase 69 U/L (40-110); Anion Gap 12 mmol/L (10-20); BUN (Urea Nitrogen) 7 mg/dL (9.8-20.1); Bilirubin, Total 0.4 mg/dL (0.2-1.2); CK (CPK) 113 U/L (29-168); Calc. Creatinine Clearance 0 mL/min (70-130); Calcium 9.1 mg/dL (7.8-10.44); Carbon Dioxide 19 mmol/L (23-31); Chloride 111 mmol/L (98-107); Globulin 3.2 g/dL (2.4-3.5); Glucose 138 mg/dL (80-115); Lipase 27 U/L (8-78); Potassium 3.3 mmol/L (3.5-5.1); Protein, Total 6.5 g/dL (6.0-8.3); Sodium 139 mmol/L (136-145)
--- NOTE | 2020-03-05 17:53 | EKG ---
Test Reason : Blood Pressure : / mmHG Vent. Rate : 081 BPM Atrial Rate : 081 BPM P-R Int : 124 ms QRS Dur : 090 ms QT Int : 382 ms P-R-T Axes : 008 -36 051 degrees QTc Int : 443 ms Normal sinus rhythm with sinus arrhythmia Left axis deviation Abnormal ECG Confirmed by CAMPBELL ELLIOTT, AYLA ([id number]), supervising editor trailer [employer]STER HORAN ([id number]) on 03/05/2020 5:52:40 PM Referred By: CAMPBELL Confirmed By:AYLA HIGHTOWER MD
== END 2020-02-25 15:09 | disposition home or self-care (01) ==
LOC: ERS 10:31
DX: D64.9 Anemia, unspecified (principal); E78.5 Hyperlipidemia, unspecified; E78.00 Pure hypercholesterolemia, unspecified; I10 Essential (primary) hypertension; Z87.891 Personal history of nicotine dependence; Z79.899 Other long term (current) drug therapy
CPT/HCPCS: 36430; 80053; 82550; 83690; 83880; 84484; 85025; 86850; 86900; 86901; 86920; 93005; P9016

== ENCOUNTER 2021-03-21 09:04 | Outpatient (CLI) | payer MEDICARE, OTHER | END 2021-03-21 09:05 | disposition home or self-care (01) | LOC: BICMAMMO 09:04 | PROVIDERS: ATTEND Family Medicine | DX: Z12.31 Encounter for screening mammogram for malignant neoplasm of breast (principal); Z80.3 Family history of malignant neoplasm of breast | CPT/HCPCS: 77063; 77067 ==

== ENCOUNTER 2022-03-27 08:03 | Outpatient (CLI) | payer MEDICARE | END 2022-03-27 08:04 | disposition home or self-care (01) | LOC: BICMAMMO 08:03 | PROVIDERS: ATTEND Family Medicine | DX: Z12.31 Encounter for screening mammogram for malignant neoplasm of breast (principal); Z80.3 Family history of malignant neoplasm of breast | CPT/HCPCS: 77063; 77067 ==

== ENCOUNTER 2022-05-02 22:13 | Emergency (ER) | payer MEDICARE ==
[2022-05-02 23:01] LABS: #Eosinphils 0.1 thou/uL (0.0-0.7); #Lymphocytes 2.6 thou/uL (1.20-3.40); #Monocytes 0.6 thou/uL (0.11-0.59); #Neutrophils 3.4 thou/uL (1.40-6.50); %Basophils 0.3 % (0.0-1.0); %Monocytes 8.9 % (0.0-10.0); %Neutrophils 50.8 % (42.0-75.0); Hemoglobin 14.8 g/dL (12.0-16.0); Mean Corpuscular HGB CONC 34.6 g/dL (32.0-36.0); Mean Corpuscular Hemoglobin 32.4 pg (27.0-31.0); Mean Corpuscular Volume 93.8 fl (78.0-98.0); Mean Platelet Volume 7.1 fL (7.4-10.4); Platelet Count 252 10x3/uL (130-400); RBC Distribution Width 11.1 % (11.5-14.5); Red Blood Cell (RBC) Count 4.56 mill/uL (4.20-5.40); White Blood Cell (WBC) Count 6.7 10x3/uL (4.8-10.8)
[2022-05-02 23:23] LABS: ALT (SGPT) 13 U/L (8-55); AST (SGOT) 17 U/L (5-34); Albumin 4.4 g/dL (3.4-4.8); Alkaline Phosphatase 78 U/L (40-110); Anion Gap 15 mmol/L (10-20); BUN (Urea Nitrogen) 11 mg/dL (9.8-20.1); Bilirubin, Total 0.6 mg/dL (0.2-1.2); Calc. Creatinine Clearance 0 mL/min (70-130); Calcium 9.1 mg/dL (7.8-10.44); Carbon Dioxide 19 mmol/L (23-31); Chloride 105 mmol/L (98-107); Estimated GFR 76; Globulin 2.8 g/dL (2.4-3.5); Glucose 90 mg/dL (80-115); Potassium 3.8 mmol/L (3.5-5.1); Protein, Total 7.2 g/dL (5.8-8.1); Sodium 135 mmol/L (136-145)
[2022-05-03 01:13] LABS: Bilirubin Negative (Negative); Blood, Urine Negative (Negative); Clarity Clear (Clear); Glucose, Urine (Dipstick) Normal (Negative); Ketone, Urine Negative (Negative); Leukocyte Negative Leu/uL (Negative); Nitrite Negative (Negative); Protein, Urine (Dipstick) Negative (Neg-Trace); Specific Gravity, Urine 1.003 (1.002-1.036); Urobilinogen Normal mg/dL (Less than 2); pH, Urine 5.5 (5.0-9.0)
== END 2022-05-03 02:56 | disposition home or self-care (01) ==
LOC: ERS 22:13
DX: R53.1 Weakness (principal); E78.00 Pure hypercholesterolemia, unspecified; I10 Essential (primary) hypertension; Z87.891 Personal history of nicotine dependence
CPT/HCPCS: 36415; 70450; 71045; 80053; 81003; 84484; 85025; 93005

== ENCOUNTER 2022-11-06 08:22 | Day surgery (SDC) | payer MEDICARE ==
[2022-11-02 15:05] VITALS: BMI 30.4
[~2022-11-06 08:22] MED LIST: EPINEPHrine 0.3 MG in Ophthalmic Irrigation Solution 500 ML IRR SCH; Midazolam HCl 2 mg/2 ml Vial ONE; fentaNYL 50 mcg/mL 1 mL Vial ONE
[2022-11-06] MEDS ORDERED: PHENYLephrine 2.5% Ophth Soln 15 ml Bottle ONE (09:20)
[2022-11-06] MEDS ORDERED: Cyclopentolate 0.5% Opth Drops 15 ML BOT ONE (09:22)
[2022-11-06] MEDS ORDERED: Lidocaine 1% PF 5 ML VIAL ONE (10:13)
[2022-11-06] MEDS ORDERED: Maxitrol 0.1% Opth Oint 3.5 GM TUBE ONE (10:13)
[2022-11-06] MEDS ORDERED: CEFAZOLIN 1 GM VIAL ONE (10:13)
[2022-11-06] MEDS ORDERED: PROPOFOL 200 MG/20 ML VIAL ONE (10:13)
[2022-11-06] MEDS ORDERED: Triamcinolone 40 MG/ML VIAL ONE (10:13)
[2022-11-06] MEDS ORDERED: Bupivacaine 0.75% 10 ML VIAL ONE (10:13)
[2022-11-06] MEDS ORDERED: Lidocaine 4% PF 5 ML AMP ONE (10:13)
[2022-11-06] MEDS ORDERED: Indocyanine Green 25 MG/10 ML VIAL ONE (10:13)
== END 2022-11-06 11:30 | disposition home or self-care (01) ==
LOC: SDC 08:22
PROVIDERS: ATTEND Ophthalmology Retina Specialist
PROC: 08T43ZZ Resection of Right Vitreous, Percutaneous Approach (ICD-10-PCS; principal; 2022-11-06)
PROC: 08NE3ZZ Release Right Retina, Percutaneous Approach (ICD-10-PCS; 2022-11-06)
DX: H35.341 Macular cyst, hole, or pseudohole, right eye (principal); Z88.1 Allergy status to other antibiotic agents
CPT/HCPCS: 67042; J3010; 67025; J0171; J0690; J2250; J2704; J3301; J3490

== ENCOUNTER 2022-12-04 06:16 | Day surgery (SDC) | payer MEDICARE ==
[2022-12-03 11:47] VITALS: BMI 30.2
[~2022-12-04 06:16] MED LIST changes: -Midazolam HCl 2 mg/2 ml Vial ONE; -fentaNYL 50 mcg/mL 1 mL Vial ONE
[2022-12-04] MEDS ORDERED: Cyclopentolate W/ Phenylephrin 40 DROP/2 ML BOT ONE (06:39)
[2022-12-04] MEDS ORDERED: Midazolam HCl 2 mg/2 ml Vial ONE (07:35)
[2022-12-04] MEDS ORDERED: fentaNYL 50 mcg/mL 1 mL Vial ONE (08:21)
[2022-12-04] MEDS ORDERED: Maxitrol 0.1% Opth Oint 3.5 GM TUBE ONE (08:25)
[2022-12-04] MEDS ORDERED: Triamcinolone 40 MG/ML VIAL ONE (08:25)
[2022-12-04] MEDS ORDERED: Bupivacaine 0.75% 10 ML VIAL ONE (08:25)
[2022-12-04] MEDS ORDERED: Indocyanine Green 25 MG/10 ML VIAL ONE (08:25)
[2022-12-04] MEDS ORDERED: Lidocaine 1% PF 5 ML VIAL ONE (08:25)
[2022-12-04] MEDS ORDERED: PROPOFOL 200 MG/20 ML VIAL ONE (08:25)
[2022-12-04] MEDS ORDERED: Lidocaine 4% PF 5 ML AMP ONE (08:25)
[2022-12-04] MEDS ORDERED: CEFAZOLIN 1 GM VIAL ONE (08:25)
== END 2022-12-04 09:51 | disposition home or self-care (01) ==
LOC: SDC 06:16
PROVIDERS: ATTEND Ophthalmology Retina Specialist
PROC: 08T43ZZ Resection of Right Vitreous, Percutaneous Approach (ICD-10-PCS; principal; 2022-12-04)
PROC: 08NE3ZZ Release Right Retina, Percutaneous Approach (ICD-10-PCS; 2022-12-04)
DX: H35.341 Macular cyst, hole, or pseudohole, right eye (principal); Z88.1 Allergy status to other antibiotic agents
CPT/HCPCS: 67025; J0171; J2250; J3010

== ENCOUNTER 2023-04-12 12:52 | Outpatient (CLI) | payer MEDICARE | END 2023-04-12 12:53 | disposition home or self-care (01) | LOC: BICMAMMO 12:52 | PROVIDERS: ATTEND Family Medicine | DX: Z12.31 Encounter for screening mammogram for malignant neoplasm of breast (principal) | CPT/HCPCS: 77063; 77067 ==

== ENCOUNTER 2024-04-13 10:39 | Outpatient (CLI) | payer MEDICARE | END 2024-04-13 10:40 | disposition home or self-care (01) | LOC: BICMAMMO 10:39 | PROVIDERS: ATTEND Family Medicine | DX: Z12.31 Encounter for screening mammogram for malignant neoplasm of breast (principal); Z80.3 Family history of malignant neoplasm of breast | CPT/HCPCS: 77063; 77067 ==